=== PATIENT | male | born 1945 | race Caucasian/White ===

== ENCOUNTER → 2017-12-10 11:43 | Outpatient (CLI) | payer MEDICARE, SELFPAY ==
[2017-12-10 12:51] LABS: Anion Gap 7 (5-15); BUN 14 mg/dL (7-18); BUN/Creat Ratio 14.3 RATIO (10-20); Calcium,Total 8.5 mg/dL (8.5-10.1); Chloride 106 mmol/L (98-107); Creatinine, Serum 0.98 mg/dL (0.70-1.30); EST Glomerular Filtration Rate 80 mL/min (>60); Est Glom Filt Rate - Afr Amer 96 mL/min (>60); Glucose 95 mg/dL (74-106); PSA,Total- Diagnostic 0.02 ng/mL (0.0-4.0); Sodium Level 140 mmol/L (136-145)
== END ==
PROVIDERS: Visit Provider Urology
DX: C61 Malignant neoplasm of prostate (principal)
CPT/HCPCS: 36415; 80048; 84153

== ENCOUNTER 2017-12-26 09:17 | Day surgery (SDC) | payer MEDICARE, SELFPAY ==
[2017-12-26] VITALS (11 sets, daily range): BP systolic 118–157; BP diastolic 73–95; PULSE 58–87; RESP 16–18; TEMP 36.2–37; O2SAT 91–100; BMI 25.7
--- NOTE | 2017-12-26 09:28 | EKG12_ITS ---
Test Reason : PREOP Blood Pressure : / mmHG Vent. Rate : 060 BPM Atrial Rate : 060 BPM P-R Int : 204 ms QRS Dur : 088 ms QT Int : 442 ms P-R-T Axes : -16 033 033 degrees QTc Int : 442 ms Normal sinus rhythm Nonspecific ST segment abnormality Abnormal ECG Confirmed by DECLAN LOUIS, SOO ([id number]), index editor ISABEL MARTINEZ ([id number]) on 01/01/2018 3:44:15 PM Referred By: Cuba Rod Confirmed By:SOO MANRIQUEZ MD
[2017-12-26 09:40] LABS: Hematocrit 43.7 % (40-54); Hemoglobin 14.6 g/dl (13.0-16.5); Mean Corp Hgb Conc 33.4 g/gl (32-36); Mean Corpuscular Hgb 32.3 pg (27.0-32.0); Mean Corpuscular Volume 96.7 fL (80-94); Mean Platelet Vol. 9.8 fl (6.2-12.0); Platelet Count 259 K/mm3 (150-450); RBC Distribution Width CV 12.5 % (11.6-14.6); RBC Distribution Width SD 43.2 fl (35.1-43.9); Red Blood Count 4.52 M/mm3 (4.6-6.2); White Blood Count 4.7 K/mm3 (4.4-11.0)
[2017-12-26 09:41] LABS: Scan Indicated on CBC? Y/N NO
--- NOTE | 2017-12-26 11:30 | PROS_PTH ---
PATIENT: AMI LEVI [place] [facility] [place] [facility] [place][id number] AGE/SX: 72/M ROOM: RE12/26/[address]: Dr. Cuba Rod MD : [id number] BED: DIS: 12/27/2017 SPEC #: [id number] RECD: 12/26/17 14:00 STATUS: DOLORES RYAN #: [id number] JACQUES: 12/26/17 11:[address]: Cuba Rod DEPT: SURGICAL PATHOLOGY RECD BY: Praveena Arboleda ENTERED: 12/26/17 15:09 SP TYPE: TURP OTHR DR: Dr. Nataly Kaplan MD Tissues: Prostate, NOS Procedures: Surgery Specimen Level IV HEADER OPERATION: Cysto, TUR, prostate, Olympus PRE-OP DIAGNOSIS: History of prostate cancer, postradiation therapy, obstruction midline prostate with calcification plaques, urgency, frequency TISSUE SUBMITTED: Prostate chips MICROSCOPIC DIAGNOSIS Prostate chips, TUR: Benign prostatic hyperplasia. Acute and chronic inflammation and basal cell hyperplasia. Focal necrosis, associated acute inflammation and calcification, most likely therapy-related changes. EVELIN:min 12/27/17 COMMENT Correlation with clinical findings and appropriate follow up are necessary. Please make reference to previous specimen ([id number]) right prostate, mid, left prostate, apex, left prostate, mid and left prostate, base with diagnosis of prostatic adenocarcinoma and right prostate, base with diagnosis of focal high-grade prostatic intraepithelial neoplasia. MICROSCOPIC DESCRIPTION Slides are reviewed. GROSS DESCRIPTION Received is one container labeled with the patient's name and designated prostate chips. The specimen consists of multiple irregular fragments of pink-vang, rubbery, soft tissue that in aggregate weigh 14.4 gm and measure in aggregate 6 x 6 x 2.5 cm. Crusher Wet Ground Mica tissue is submitted in 12 cassettes. / EVELIN:min 12/26/17 The rest of the specimen is submitted in three more cassettes, 13-15. / EVELIN:min 12/27/17 TC:5 CPT: 36759
[2017-12-26] MEDS: Cefazolin 2 GM in 0.9% Normal Saline 100 ML IV (12:21)
--- NOTE | 2017-12-26 12:22 | DCINST_ITS ---
Discharge Diet: Light diet - advance as tolerated Discharge Activity: Return to Normal Activity Call your doctor if your incision/area has: Continuous Slow Oozing, Sudden Increased Bleeding, Increased Pain/ Swelling, Increased Redness, Foul Smelling Discharge, Swelling at the incision site Suture Line Care: Avoid Pulling/Pushing, Avoid Pinching/Bending Instructions: Transurethral Resection of the Prostate (TURP): Home Recovery Allergies/Adverse Reactions: Allergies Sulfa (Sulfonamide Antibiotics) Allergy (Verified 12/24/17 08:53) Rash Medications to take at Discharge Lisinopril [Zestril] 40 mg PO DAILY 06/17/14 Amlodipine [Norvasc] 5 mg PO DAILY 12/24/17 Pravastatin [Pravachol] 40 mg PO DAILY 12/24/17 Ciprofloxacin [Cipro] 500 mg PO BID #14 tab 12/26/17 The following prescriptions were given: Ciprofloxacin [Cipro] 500 mg PO BID #14 tab Primary Care Physician: Nataly Kaplan [Primary Care Provider] - Test Results: Test results from this visit will be discussed in further detail at your follow- up appointment, if applicable. Please Follow Up With: Cuba Rod MD When: in 2 weeks, please call to make an appointment.
--- NOTE | 2017-12-26 13:18 | PCM.OPRPT ---
Problem List (1) BPH (benign prostatic hyperplasia) Status: Chronic Qualifiers: Lower urinary tract symptom presence: symptoms present Lower urinary tract symptom detail: urinary frequency Qualified Code(s): N40.1 - Benign prostatic hyperplasia with lower urinary tract symptoms; R35.0 - Frequency of micturition Report of Operation Date of Procedure: 12/26/17 Pre-Operative Diagnosis: BPH with obstruction Post-Operative Diagnosis: The same Surgery/Procedure Performed:: Transurethral resection of the prostate Description of Surgical Findings:: 72-year-old male taken back to the operating room at the smooth induction of general anesthesia he was placed supine on the table in the dorsolithotomy position, the penis testicles were prepped and draped in usual sterile fashion, I then went into the bladder with a 24 [place] noncontinuous flow resectoscope using the 24 Olympus he had a significant amount of tissue coming from the right side of the prostate there is a calcification stuck on the prostate and skull causing a lot of irritation the bladder wall I then resected the right lobe of the prostate and then resected down back to the apex I then resected the left lobe the prostate no median lobe was there to be resected left and right ureteral orifice were identified and uninjured after the complete resection of the prostate had a nice wide open channel did coud? maneuver and was able to get a nice wide open stream check the sphincter the sphincter is nice and intact and at this point then I put it all all the chips were Ellik out of the bladder I obtain good hemostasis and pinpoint electrocautery and the put a catheter in for continuous bladder irrigation tissue anesthetic is currently being reversed plan to taken back to PACU with continuous bladder irrigation. Type of Anesthesia:: General Specimen's removed: prostate tissue - Admit VTE Documentation VTE Present on Admission: No VTE Mechan Device Prophylaxis: SCD's
[2017-12-26] MEDS: 0.9% Normal Saline 1,000 ML 75 ML IV ×2 (14:02→21:06)
[2017-12-26] MEDS: Ciprofloxacin 500 MG Tablet PO ×2 (18:06→21:08)
[2017-12-26] MEDS: Docusate Sodium 100 MG Capsule PO (21:08)
[2017-12-27 02:41] VITALS: BP 115/89; PULSE 72; RESP 16; TEMP 37.2; O2SAT 94
[2017-12-27 02:48] VITALS: PULSE 72
[2017-12-27] MEDS: Ibuprofen 600 MG Tablet PO (06:37)
--- NOTE | 2017-12-27 07:44 | PCM.PN.BLA ---
Progress Note 72-year-old male status post TURP doing very well, urine is clear, while the nursing staff take out the catheter and after he is able to urinate and go home without a catheter and follow-up with me in about 2 weeks. He will go home with Cipro.
[2017-12-27 08:40] VITALS: BP 113/67; PULSE 66; RESP 18; TEMP 37.1; O2SAT 93
[2017-12-27] MEDS: Docusate Sodium 100 MG Capsule PO (09:51)
[2017-12-27] MEDS: Pantoprazole Sodium 40 MG Tablet PO (09:51)
[2017-12-27] MEDS: Ciprofloxacin 500 MG Tablet PO (09:51)
== END 2017-12-27 12:50 | disposition home or self-care (01) ==
LOC: SDC 09:18 → AC 09:19 → MS3 12-27 08:54
PROVIDERS: Family Provider Family Medicine; PCP Family Medicine; Visit Provider Urology
PROC: (CPT 52601; principal; 2017-12-26 11:20)
DX: N40.1 Benign prostatic hyperplasia with lower urinary tract symptoms (principal); R35.0 Frequency of micturition; R39.15 Urgency of urination; Z85.828 Personal history of other malignant neoplasm of skin; Z85.46 Personal history of malignant neoplasm of prostate; E78.00 Pure hypercholesterolemia, unspecified; Z79.899 Other long term (current) drug therapy; I10 Essential (primary) hypertension
CPT/HCPCS: 52601; 36415; 85027; 88305; 93005; J7030; J7120; J2405

== ENCOUNTER → 2018-10-14 | Outpatient (CLI) | payer MEDICARE, SELFPAY ==
[2017-12-26 14:42] VITALS: BMI 25.7
[2018-10-14 10:44] LABS: PSA,Total- Diagnostic 0.08 ng/mL (0.0-4.0)
== END | disposition home or self-care (01) ==
LOC: LAB 09:01
PROVIDERS: Family Provider Internal Medicine; PCP Internal Medicine; Referring Provider Urology; Visit Provider Urology
DX: C61 Malignant neoplasm of prostate (principal)
CPT/HCPCS: 36415; 84153

== ENCOUNTER → 2019-10-13 08:00 | Outpatient (CLI) | payer MEDICARE, SELFPAY ==
[2017-12-26 14:42] VITALS: BMI 25.7
== END ==
PROVIDERS: PCP Internal Medicine; Referring Provider Urology; Visit Provider Urology
DX: C61 Malignant neoplasm of prostate (principal)
CPT/HCPCS: 36415; 84153

== ENCOUNTER 2019-11-14 07:10 | Emergency (ER) | payer MEDICARE, SELFPAY ==
[2019-11-14 07:14] VITALS: BP 154/78; PULSE 53; RESP 17; TEMP 36.4; O2SAT 96; BMI 25.9
--- NOTE | 2019-11-14 07:29 | CT_ITS ---
STUDY: CT ABDOMEN AND PELVIS WITH CONTRAST REASON FOR EXAM: Male, 74 years old. PT STATED RT LOWER FLANK PAIN, VOMITING, HEMATURIA RADIATION DOSAGE (If Supplied By Facility): CTDIvol = ( 17.29 ) mGy, DLP = ( 1049.16 ) mGycm TECHNIQUE: Transaxial images were obtained from the dome of the diaphragm to the symphysis pubis with oral contrast. Oral and amp; IV Gastrografin and amp; 100mL Isovue-300 was administered. Sagittal and coronal images were reconstructed. Individualized dose optimization techniques were used for this CT. COMPARISON: Comparison is made with prior examination dated December 29, 2016. FINDINGS: Stable minimal degree of increased markings at the lung bases with areas of confluence suggestive of bibasilar scarring. Calcified right hilar lymph nodes. Coronary artery calcification. Normal liver. Normal gallbladder and extrahepatic biliary system. Normal spleen. Normal pancreas. Normal bilateral adrenal glands. There is a 2.3 cm x 1.9 cm cyst in the posterior upper pole of the right kidney. Mild degree of the right hydronephrosis and the right hydroureter due to a 3 mm calculus in the distal portion of the right ureter. Normal left kidney. Normal visualized stomach. Normal small intestine. There are multiple colonic diverticula consistent with diverticulosis. The appendix is visualized and appears normal. There is diffuse atherosclerotic calcification of the abdominal aorta, without a demonstrated aneurysm. Normal inferior vena cava. Normal retroperitoneum. Normal urinary bladder. Central prostatic calcifications are seen. There is also evidence of the metallic radiation seeds within the prostate. There is eccentric enlargement of the prostate worse on the left side with the indentation at the bladder base worse on the left side. This is unchanged. There is a small umbilical hernia containing fat. There are mild degenerative changes of the visualized lumbar spine. Minimal retrolisthesis of L2 on L3. CT/Abdomen/Pelvis WITH Contrast IMPRESSION: 3 mm calculus in the distal portion of the right ureter causing right hydronephrosis and right hydroureter. Stable cyst in the right kidney. Stable enlargement of the prostate with indentation at the bladder base more prominent on the left side. Electronically Signed: Layton Carlin, at 8:41 EDT , Service support ,
--- NOTE | 2019-11-14 07:30 | ED.DCSUM_ITS ---
History of Present Illness Chief Complaint: Abd Pain Informant: Patient Onset: Yesterday Context: Gradual Onset Timing: Waxes and wanes Current Severity: Moderate Maximum Severity: Moderate Narrative: Patient presents secondary to abdominal pain and right flank pain. He states lower abdominal pain started yesterday afternoon. He describes it as crampy and tight. He denies fever or chills. No nausea or vomiting. He did eat dinner and states that seemed to help relieve the pain slightly. Overnight pain worsened again and started radiating into the right flank. He denies urinary symptoms. He denies passing gas or having a bowel movement since onset. He denies any prior abdominal surgeries. - Past Medical History (1) BPH (benign prostatic hyperplasia) Status: Chronic (2) Cerebrovascular disease Status: Chronic Comment: Small basal ganglia infarcts (3) Dyslipidemia Status: Chronic (4) HTN (hypertension) Status: Chronic (5) Nephrolithiasis Status: Chronic Past Medical History - Allergies and Home Meds Allergies/Adverse Reactions: Allergies Sulfa (Sulfonamide Antibiotics) Allergy (Verified 11/14/19 07:14) Rash Primary Care Physician: Care Physician,No Primary [NON-STAFF] - Prior records reviewed: Yes Lives: Spouse/ Significant Other Smoking Status: Never smoker - Family History Maternal Family History: Reports: No pertinent history Review of Systems General: Denies: Chills, Fever Eyes: Denies: Visual changes - bilaterally ENT: Denies: Bilateral ear pain Cardiovascular: Denies: Chest pain Respiratory: Denies: Dyspnea, Cough Gastrointestinal: Reports: Abdominal pain. Denies: Nausea, Vomiting, Diarrhea Genitourinary: Denies: Dysuria Musculoskeletal: Reports: Back pain - Right flank pain. Denies: Extremity Pain Neurological: Denies: Headache Endocrine: Denies: Polyuria, Polydipsia Allergy: Denies: Uticaria Physical Exam Vital Signs/Narrative: Vital Signs Temp Pulse Resp BP Pulse Ox 11/14/19 07:14 97.6 F L 53 L 17 154/78 H 96 Inital Vital Signs reviewed: Yes General: Well nourished, Well developed Head: Normocephalic ENT: Moist mucous membranes Neck: Supple Cardiovascular: Regular rate, Regular rhythm Respiratory: No distress, CTA bilaterally Abdomen: Soft, - - Abdomen slightly distended with hypoactive, minimal bowel sounds. Tenderness over the mid abdomen and right lower quadrant. Mild tenderness in the right lower flank region. Extremities: Nontender Skin: Normal color Neurological: Alert, Oriented x3 Psychological: Normal affect Diagnostic/Tx/Re-eval Impressions Abdomen/Pelvis CT 11/14/19 07:29 IMPRESSION: 3 mm calculus in the distal portion of the right ureter causing right hydronephrosis and right hydroureter. Stable cyst in the right kidney. Stable enlargement of the prostate with indentation at the bladder base more prominent on the left side. Electronically Signed: Layton Carlin, at 8:41 EDT , Service support , 11/14/19 07:29 Abdomen/Pelvis WITH Contrast [CT] Stat Laboratory Results 11/14/19 11/14/19 11/14/19 07:31 07:40 07:40 WBC 6.5 RBC 4.72 Hgb 14.9 Hct 46.1 MCV 97.7 H MCH 31.6 MCHC 32.3 RDW Std Deviation 45.5 H RDW Coeff of Milagro 12.7 Plt Count 263 MPV 9.5 Immature Gran % (Auto) 0.500 Neut % (Auto) 59.2 Lymph % (Auto) 21.7 Hardin % (Auto) 15.5 H Eos % (Auto) 2.2 Baso % (Auto) 0.9 Absolute Neuts (auto) 3.9 Absolute Lymphs (auto) 1.41 Nucleated RBC % 0 Sodium 141 Potassium 4.4 Chloride 106 Carbon Dioxide 27.0 Anion Gap 8 BUN 16 Creatinine 1.08 Estim Creat Clear Calc 62.94 Est GFR (MDRD) Af Amer 86 Est GFR (MDRD) Non-Af 71 BUN/Creatinine Ratio 14.8 Glucose 156 H Calcium 9.2 Total Bilirubin 0.80 Direct Bilirubin 0.20 AST 39 H ALT 70 H Alkaline Phosphatase 106 Total Protein 7.3 Albumin 3.8 Globulin 3.5 Urine Color Yellow Urine Clarity Sl. Cloudy Urine pH 5.0 Ur Specific Dickerson 1.025 Urine Protein 100 H Urine Glucose (UA) Normal Urine Ketones 5 H Urine Occult Blood 250 H Urine Nitrite Negative Urine Bilirubin Negative Urine Urobilinogen Normal Ur Leukocyte Esterase 25 H Urine RBC 25-50 SEEN Urine WBC 0-5 SEEN Ur Squamous Epith Cells 0 SEEN Urine Bacteria 1+ Urine Mucus 0 SEEN Urine Yeast 1+ - Medical Decision Making Patient was given morphine and Zofran for pain along with IV fluids. On repeat evaluation he is resting comfortably. Test results tests discussed with patient and family at bedside. Kidney stone is currently measuring 3 mm and he should be able to pass this on his own. He will be given pain medication for home. He has seen Dr. Rod in the past and will be referred to him for follow-up. He was given return instructions if symptoms worsen or he has any concerns. ED Disposition - Plan for ED Patient: Disposition: Home or Assisted Living Diagnosis: Kidney stone Instructions: ED Renal Stone w Colic Prescriptions: Tamsulosin HCl [Flomax] 0.4 mg PO DAILY #7 cap Transmission Status: Pending to [id number] Ibuprofen 400 mg PO 4X/DAY PRN PRN #14 tab PRN Reason: Pain Score 4-10/10 Transmission Status: Pending to [id number] Hydrocodone Bitart/Apap 5-325 [[place] 5MG-325MG] 1 tablet PO Q6H PRN PRN 3 Days #10 tablet PRN Reason: Pain Transmission Status: Received by [id number] Ondansetron [Zofran Odt] 4 mg PO Q8H PRN PRN #10 tab PRN Reason: Nausea Transmission Status: Pending to [id number] Referrals: Cuba Rod MD [STAFF PHYSICIAN] - 3-5 Days if not improving
[2019-11-14 07:40] LABS: Mucous, Urine 0 SEEN /hpf (<or=2+); Squamous Epithelial Cells - UA 0 SEEN /hpf (0-5)
[2019-11-14] MEDS: Morphine 4 MG/ML Syringe IV (07:48)
[2019-11-14] MEDS: 0.9% Normal Saline 1,000 ML 150 ML IV (07:48)
[2019-11-14] MEDS: Ondansetron 4 MG/2 ML Vial IV (07:48)
[2019-11-14 07:49] LABS: Absolute Lymphocyte Count 1.41 X10^3/uL (0.83-4.51); Absolute Neutrophil Count 3.9 X10^3/uL (2.0-7.7); Basophil# 0.06 X10^3/uL; Basophil% 0.9 % (0-1); Eosinophil# 0.14 X10^3/uL; Eosinophils% 2.2 % (0-5); Hematocrit 46.1 % (40-54); Hemoglobin 14.9 g/dL (13.0-16.5); Lymphocyte # 1.41 X10^3/ul (4.0); Lymphocyte % 21.7 % (19-41); Mean Corp Hgb Conc 32.3 g/dL (32-36); Mean Corpuscular Hgb 31.6 pg (27.0-32.0); Mean Corpuscular Volume 97.7 fL (80-94); Mean Platelet Vol. 9.5 fl (6.2-12.0); Monocyte# 1.01 X10^3/uL; Monocyte% 15.5 % (0-10); NRBC Flagged by Analyzer 0 % (0-5); Neutrophil # 3.86 X10^3/uL (2.7-7.7); Neutrophil % 59.2 % (47-70); Platelet Count 263 K/mm3 (150-450); RBC Distribution Width CV 12.7 % (11.6-14.6); RBC Distribution Width SD 45.5 fl (35.1-43.9); Red Blood Count 4.72 M/mm3 (4.6-6.2); White Blood Count 6.5 K/mm3 (4.4-11.0)
[2019-11-14 07:50] LABS: Color, Urine Yellow (Yellow); Glucose, Dipstick Normal (Normal); Ketone-Dipstick 5 mg/dl (Negative); Leukocyte Esterase-Dipstick 25 /ul (Negative); Nitrite-Dipstick Negative (Negative); Occult Blood-Urine 250 /ul (Negative); Protein-Dipstick 100 mg/dl (Negative); Specific Gravity, Urine 1.025 (1.002-1.030); Urine Bilirubin Dipstick Negative (Negative); Urine Clarity Sl. Cloudy (Clear); Urine Urobilinogen Normal (Normal)
[2019-11-14 08:05] LABS: Bacteria 1+ /hpf (None Seen); Red Blood Cells-Urine 25-50 SEEN /hpf (0-5); White Blood Cells 0-5 SEEN /hpf (0-5); Yeast-Urine 1+ /hpf (None Seen)
[2019-11-14 08:06] LABS: AST(SGOT) 39 U/L (15-37); Alanine Aminotransfer ALT/SGPT 70 U/L (16-61); Albumin, Serum 3.8 g/dL (3.2-5.0); Alkaline Phosphatase 106 U/L (45-117); Anion Gap 8 (5-15); BUN 16 mg/dL (7-18); BUN/Creat Ratio 14.8 RATIO (10-20); Calcium,Total 9.2 mg/dL (8.5-10.1); Chloride 106 mmol/L (98-107); Creatinine, Serum 1.08 mg/dL (0.70-1.30); EST Glomerular Filtration Rate 71 mL/min (>60); Est Glom Filt Rate - Afr Amer 86 mL/min (>60); Estimated Creatinine Clearance 62.94 ml/min; Globulin 3.5 g/dL (2.2-4.2); Glucose 156 mg/dL (74-106); Potassium 4.4 mmol/L (3.5-5.1); Protein, Total 7.3 g/dL (6.4-8.2); Sodium Level 141 mmol/L (136-145)
[2019-11-14 08:54] VITALS: PULSE 55; RESP 15; O2SAT 95
== END 2019-11-14 08:59 | disposition home or self-care (01) ==
PROVIDERS: Emergency Provider Emergency Medicine; PCP Family Medicine
DX: N13.2 Hydronephrosis with renal and ureteral calculous obstruction (principal); N28.1 Cyst of kidney, acquired; I10 Essential (primary) hypertension; E78.5 Hyperlipidemia, unspecified; N40.0 Benign prostatic hyperplasia without lower urinary tract symptoms; Z86.73 Personal history of transient ischemic attack (TIA), and cerebral infarction without residual deficits; Z87.442 Personal history of urinary calculi; Z79.899 Other long term (current) drug therapy
CPT/HCPCS: 74177; 80048; 80076; 81001; 85025; 96361; 96374; 96375; 99285; J7030; Q9967; A4216; J2405

== ENCOUNTER → 2020-05-18 10:21 | Outpatient (CLI) | payer MEDICARE, SELFPAY ==
--- NOTE | 2020-05-18 10:24 | RAD_ITS ---
STUDY: X-RAY - ABDOMEN/PELVIS REASON FOR EXAM: Male, 75 years old. Right-sided posterior pain. Question kidney stone. TECHNIQUE: Two AP supine views of the abdomen and pelvis. COMPARISON: CT of the abdomen and pelvis, 11/14/2019. FINDINGS: Normal visualized lung bases. There is an unremarkable bowel gas pattern. There is no demonstrated free abdominal air. The visualized liver, spleen and kidneys are grossly normal in size and morphology. No suspicious calcifications. There are surgical clips in the lower pelvis. Stable degenerative changes of the lumbar spine RAD/Abdomen Single View IMPRESSION: No evidence of renal or ureteral calcifications. There is no evidence of acute abdominal or pelvic processes. Electronically Signed: Hu Bull DO at 17:30 EST Tel [phone], Service support ,
== END ==
PROVIDERS: PCP Family Medicine; Visit Provider Urology
DX: N23 Unspecified renal colic (principal); Z87.442 Personal history of urinary calculi
CPT/HCPCS: 74018

== ENCOUNTER → 2020-05-18 11:38 | Outpatient (CLI) | payer MEDICARE, SELFPAY ==
--- NOTE | 2020-05-18 11:40 | CT_ITS ---
STUDY: CT ABDOMEN AND PELVIS WITHOUT CONTRAST REASON FOR EXAM: Male, 75 years old. RIGHT FLANK PAIN -- HX-KIDNEY STONE, PROSTATE CA W/ TURP and amp;amp; RADIATION RADIATION DOSAGE (If Supplied By Facility): CTDIvol = ( 13.75 ) mGy, DLP = ( 673.24 ) mGycm TECHNIQUE: Transaxial images were obtained from the dome of the diaphragm to the symphysis pubis without oral contrast, and without intravenous contrast. Sagittal and coronal images were reconstructed. Individualized dose optimization techniques were used for this CT. COMPARISON: Comparison is made with prior study dated 11/14/2019. FINDINGS: Stable minimal increased markings at the lung bases suggestive of scarring. Calcified right hilar lymph nodes. Coronary artery calcification. Normal liver. Normal gallbladder and extrahepatic biliary system. Normal spleen. Normal pancreas. Normal bilateral adrenal glands. Right perinephric stranding. Moderate degree of right hydronephrosis and the right hydroureter due to 2 adjacent calculi in the distal portion of the right ureter just proximal to the ureterovesical junction. The larger calculus measures 4.4 mm. Stable 2 cm cyst in the posterior upper aspect of the right kidney. Normal left kidney. Normal visualized stomach. Normal small intestine. There are multiple colonic diverticula consistent with diverticulosis. The appendix is visualized and appears normal. There is scattered atherosclerotic calcification of the abdominal aorta and its major visceral branches, without a demonstrated aneurysm. Normal inferior vena cava. Normal retroperitoneum. The bladder is almost empty with evidence of a thickened wall. There are prostatic calcifications. Evidence of prior TURP. Metallic radiation seeds are seen within the prostate. There is a small umbilical hernia containing fat. There are mild degenerative changes of the visualized lumbar spine. CT/Abdomen/Pelvis without Cont IMPRESSION: There are 2 adjacent calculi in the distal portion of the left ureter causing a mild degree of right hydronephrosis and right hydroureter with perinephric and periureteric stranding. The remainder of the examination is unchanged. Electronically Signed: Layton Carlin, at 12:17 EST , Service support ,
== END ==
PROVIDERS: PCP Family Medicine; Referring Provider Urology; Visit Provider Urology
DX: N23 Unspecified renal colic (principal); Z87.442 Personal history of urinary calculi
CPT/HCPCS: 74018; 74176

== ENCOUNTER 2020-05-26 05:52 | Day surgery (SDC) | payer MEDICARE, SELFPAY ==
[2020-05-26 06:37] VITALS: BP 125/85; PULSE 65; RESP 16; TEMP 36.6; O2SAT 97; BMI 26.2
[2020-05-26] MEDS: Lactated Ringers 1,000 ML 100 ML IV (07:01)
[2020-05-26 07:06] LABS: Bedside Glucose 124 mg/dL (70-110)
[2020-05-26] MEDS: Cefazolin 2 GM in 0.9% Normal Saline 100 ML IV (07:17)
--- NOTE | 2020-05-26 08:07 | PCM.HP.STD ---
History of Present Illness Date of Admission: 05/26/20 Chief Complaint: Distal right ureteral calculi The patient is a 75 year old male with a CAT scan to demonstrate obstructing stone in the distal right ureter is failed to pass it conservatively so again taken to surgery today and perform ureteroscopy and laser lithotripsy and stent placement on the right side. Past Medical History Past Medical History (Chronic Problems): Chronic Problems Cerebrovascular disease (Chronic) Small basal ganglia infarcts Nephrolithiasis (Chronic) BPH (benign prostatic hyperplasia) (Chronic) Dyslipidemia (Chronic) HTN (hypertension) (Chronic) Allergies Sulfa (Sulfonamide Antibiotics) Allergy (Verified 05/20/20 12:59) Rash Home Medications: Ambulatory Orders Medication Instructions Recorded Lisinopril [Zestril] 40 mg PO DAILY 06/17/14 Amlodipine [Norvasc] 5 mg PO DAILY 12/24/17 Pravastatin [Pravachol] 40 mg PO DAILY 12/24/17 Ibuprofen 400 mg PO 4X/DAY PRN PRN #14 tab 11/14/19 Metformin HCl 500 mg PO DAILY 11/14/19 Oxybutynin [Ditropan] 10 mg PO DAILY 11/14/19 Tamsulosin HCl [Flomax] 0.4 mg PO DAILY #7 cap 11/14/19 Super Beta Prostate 1 cap PO BID 05/20/20 Surgical History: no surgical history Smoking Status: Never smoker Tobacco Use: Non-smoker - *Family History Maternal History Items: No pertinent history Review of Systems Constitutional: Denies: Chills, Fever, Weight Change HEENT: Denies: Head Aches, Sinus Congestion, Sinus Drainage Cardiovascular: Denies: Chest Pain, Palpitations Respiratory: Denies: Cough, Shortness of breath at rest, Sputum production Gastrointestinal: Denies: Abdominal Pain, Nausea, Vomiting Genitourinary: Denies: Dysuria Musculoskeletal: Denies: Joint Pain, Joint Tenderness Skin: Denies: Rash, Wounds Neurological: Denies: Numbness, Tingling, Focal weakness Psychiatric: Denies: Anxiety, Depression, Homicidal Ideations, Suicidal Ideations Hematologic/ Lymphatic: Denies: Easy Bruising, Easy Bleeding VTE Information - Inpt Only VTE Present on Admission: No - Physical Exam Vitals/I&O's: Vital Signs Temp Pulse Resp BP Pulse Ox 97.8 F 65 16 125/85 H 97 05/26/20 06:37 05/26/20 06:37 05/26/20 06:37 05/26/20 06:37 05/26/20 06:37 Oxygen Delivery Method Room Air Weight: 85.3 kg Body Mass Index (BMI) 26.2 Finger Stick Blood Glucose 112 General: Alert, Oriented x3, Cooperative HEENT: Atraumatic, PERRLA, EOMI, Normocephalic Neck: Supple, No JVD, Negative Carotid Bruits Lungs: Clear to auscultation, Normal air movement Cardiovascular: Regular rate, No murmurs Abdomen: Bowel Sounds Present, Soft, Non Tender Extremities: No edema, Capillary Refill Less than 3 Seconds Skin: No rashes, No breakdown Musculoskeletal: No Tenderness to Palpation of Joints or Extremities Neurological: Cranial nerves II-XII grossly intact Psych/Mental Status: Normal Affect, Appropriate Microbiology Past 72 Hours 05/24/20 13:55 Interface Orders SARS-CoV-2 Antigen (Rapid) - Final Laboratory Results 05/26/20 06:43: POC Glucose 124 H Current Medications Lactated Ringer's () 1,000 mls @ 100 mls/hr IV .Q10H CINTHYA Last Admin: 05/26/20 07:01 Dose: 100 mls/hr Documented by: Assessment/Plan Plan to proceed with right ureteroscopy and laser lithotripsy of stone and stent placement.
[2020-05-26 08:11] VITALS: BP 125/85; BP 127/85; PULSE 80; RESP 16; TEMP 36; O2SAT 93
--- NOTE | 2020-05-26 08:14 | DCINST_ITS ---
Discharge Diet: Light diet - advance as tolerated Discharge Activity: Return to Normal Activity Suture Line Care: Avoid Pulling/Pushing, Avoid Pinching/Bending Additional Instructions: Remove stent in about 5 days or come to the office and have the nurse remove the stent. Allergies/Adverse Reactions: Allergies Sulfa (Sulfonamide Antibiotics) Allergy (Verified 05/20/20 12:59) Rash Medications to take at Discharge Lisinopril [Zestril] 40 mg PO DAILY 06/17/14 Amlodipine [Norvasc] 5 mg PO DAILY 12/24/17 Pravastatin [Pravachol] 40 mg PO DAILY 12/24/17 Ibuprofen 400 mg PO 4X/DAY PRN PRN #14 tab 11/14/19 Metformin HCl 500 mg PO DAILY 11/14/19 Oxybutynin [Ditropan] 10 mg PO DAILY 11/14/19 Tamsulosin HCl [Flomax] 0.4 mg PO DAILY #7 cap 11/14/19 Super Beta Prostate 1 cap PO BID 05/20/20 Ciprofloxacin [Cipro] 500 mg PO BID #6 tab 05/26/20 Ciprofloxacin [Cipro] 500 mg PO BID #6 tab 05/26/20 Hydrocodone/Acetaminophen [[place] 5-325 Tablet] 1 ea PO Q4H PRN PRN #14 tab 05/26/20 The following prescriptions were given: Ciprofloxacin [Cipro] 500 mg PO BID #6 tab Transmission Status: Pending to [facility] Ciprofloxacin [Cipro] 500 mg PO BID #6 tab Prescription Printed Hydrocodone/Acetaminophen [[place] 5-325 Tablet] 1 ea PO Q4H PRN PRN #14 tab PRN Reason: Pain 1-10 Or Fever Prescription Printed Primary Care Physician: Mavis Dockery MD [Primary Care Provider] - Test Results: Test results from this visit will be discussed in further detail at your follow- up appointment, if applicable. Please Follow Up With: Cuba Rod MD When: in 2 weeks, please call to make an appointment.
--- NOTE | 2020-05-26 08:17 | PCM.OPRPT ---
Report of Operation Date of Procedure: 05/26/20 Pre-Operative Diagnosis: Right ureteral calculi Post-Operative Diagnosis: Same Surgery/Procedure Performed:: Cystoscopy and removal of stones in the bladder, right ureteroscopy, balloon dilation of the right ureter, retrograde pyelogram interpretation fluoroscopic images, laser lithotripsy of stone, and right stent placement. Description of Surgical Findings:: This is a patient who presents to the hospital for treatment for an obstructing distal right ureter calculi. I discussed witht the patient how the surgery would be performed and we reviewed the risks and benefits of the surgery. The risk and benefits include the risk of failure to remove the stone completely and that the patient may need multiple procedures. We discussed the risk of an infection, the risk of bleeding. We discussed the very rare risk of serious complicated injury to the ureter. The patient understands that if the stone is not able to be removed safely that we may abort the procedure and place a stent. After full discussion and all questions address with the patient the consent form was signed the side was marked appropriately and the patient was taken back to the operating room for the procedure. The patient was taken back to the operating room. After induction of anesthesia by the anesthesiology team the patient was placed in dorsolithotomy position. The genitals were prepped and draped in usual sterile fashion. I went into the bladder with a 21 Kiswahili rigid cystourethroscope through the urethra. In the bladder stones were removed, multiple small stones. Upon entering the bladder I inspected the trigone the left and right ureteral orifice and the bladder itself. I then cannulated the right ureteral orifice and advanced a 0.038 Glidewire up into the kidney. Then over the Glidewire I advanced a 5 Fr Ureteral catheter and performed a retrograde pyelogram with about 10cc of contrast, to delineate the anatomy and identify the stone location. Then a ureteral balloon dilator was advanced over the wire and the distal ureter was balloon dilated with a 15 Fr x 5cm balloon dilator. After 3 minutes of dilating the ureter the balloon was backloaded off the 0.038 glidewire then the safety wire was left in place. I then placed a second 0.038 Guidewire as a working wire and over the working 0.038 guidewire I went in with the stephany rigide 7.5fr ureteroscope. I was able to go inside with the 7.5Fr stephany rigid utereroscope and I pulled out the working guidewire and then through the 7.5 fr simirigid ureteroscope I engage the stone in the distal ureter with laser lithotripsy using a 270miron laser fiber with energy setting of 6 Hertz and 0.6 J until the stone was lasered into tiny little pieces that should pass on their own. A retrograde pyelogram was performed with 10cc of contast and no extravasation of contrast or perforation was identified in the ureter there was some mild irritation of the ureter where the stone was located. I then backed out of the ureter left the wire in place and then over the 0.038 guidewire I placed a double coiled pigtail ureteral stent. The ureteral stent was advanced over the 0.038 guidewire under direct fluoroscopic guidance and direct cystoscopic visual guidance, once the stent was in good position I pulled the wire and the stent coiled in the kidney and bladder in good position. I then drained the patient's bladder and the cystoscope was removed and the patient was taken back to the recovery room in good position. The patient was given discharge instructions to call the office for instructions on when to come to the office to have the stent removed. Type of Anesthesia:: General Drains: stent right 6 x 26cm - Admit VTE Documentation VTE Present on Admission: No VTE Mechan Device Prophylaxis: SCD's
[2020-05-26 08:30] VITALS: BP 111/77; BP 125/85; PULSE 72; RESP 16; O2SAT 93
[2020-05-26 08:44] VITALS: BP 117/80; BP 125/85; PULSE 69; RESP 16; TEMP 36.6; O2SAT 94
[2020-05-26 09:38] VITALS: BP 118/89; BP 125/85; PULSE 67; RESP 18; TEMP 36.2; O2SAT 97
== END 2020-05-26 09:47 | disposition home or self-care (01) ==
LOC: SDC 05:53 → AC 05:54
PROVIDERS: PCP Family Medicine; Referring Provider Urology; Visit Provider Urology
PROC: 0TJ98ZZ Inspection of Ureter, Via Natural or Artificial Opening Endoscopic (ICD-10-PCS; CPT 52352; principal; 2020-05-26 07:20)
DX: N20.1 Calculus of ureter (principal); Z20.828 Contact with and (suspected) exposure to other viral communicable diseases; I10 Essential (primary) hypertension; N40.0 Benign prostatic hyperplasia without lower urinary tract symptoms; E78.5 Hyperlipidemia, unspecified; E78.00 Pure hypercholesterolemia, unspecified; Z85.828 Personal history of other malignant neoplasm of skin; Z86.73 Personal history of transient ischemic attack (TIA), and cerebral infarction without residual deficits; Z85.46 Personal history of malignant neoplasm of prostate; Z87.442 Personal history of urinary calculi; Z79.899 Other long term (current) drug therapy
CPT/HCPCS: 52356; 76000; 82962; 87426; C9803; J7120; C1726; C1769; J2405

== ENCOUNTER 2020-08-10 06:49 | Outpatient (RCR) | payer MEDICARE, SELFPAY ==
[2020-08-10] MEDS: COVID-19 VACC, MRNA(PFIZER)/PF 30 MCG/0.3 ML SYRINGE IM (08:03)
[2020-08-31] MEDS: COVID-19 VACC, MRNA(PFIZER)/PF 30 MCG/0.3 ML SYRINGE IM (07:59)
== END 2020-11-09 23:59 ==
LOC: IMMUN 06:49
PROVIDERS: PCP Family Medicine; Referring Provider Family Medicine; Visit Provider Family Medicine
DX: Z23 Encounter for immunization (principal)
CPT/HCPCS: 0001A; 0002A; 91300

== ENCOUNTER → 2020-09-20 09:28 | Outpatient (CLI) | payer MEDICARE, SELFPAY ==
[2020-09-20 09:59] LABS: Absolute Lymphocyte Count 1.12 X10^3/uL (0.83-4.51); Basophil# 0.07 X10^3/uL; Basophil% 1.4 % (0-1); Eosinophil# 0.23 X10^3/uL; Eosinophils% 4.5 % (0-5); Hematocrit 44.9 % (40-54); Hemoglobin 14.1 g/dL (13.0-16.5); Lymphocyte # 1.12 X10^3/ul (0.83-4.51); Lymphocyte % 21.7 % (19-41); Mean Corp Hgb Conc 31.4 g/dL (32-36); Mean Corpuscular Hgb 30.6 pg (27.0-32.0); Mean Corpuscular Volume 97.4 fL (80-94); Mean Platelet Vol. 10.2 fl (6.2-12.0); Monocyte# 0.74 X10^3/uL; Monocyte% 14.4 % (0-10); NRBC Flagged by Analyzer 0 % (0-5); Neutrophil # 2.96 X10^3/uL (2.7-7.7); Neutrophil % 57.4 % (47-70); Platelet Count 239 K/mm3 (150-450); RBC Distribution Width CV 12.8 % (11.6-14.6); RBC Distribution Width SD 45.7 fl (35.1-43.9); Red Blood Count 4.61 M/mm3 (4.6-6.2); White Blood Count 5.2 K/mm3 (4.4-11.0)
[2020-09-20 10:19] LABS: Microalbumin:Creatinine Ratio 145.3 mg/g CRE (<30 mg/g CRE)
[2020-09-20 10:33] LABS: ALB/GLOB Ratio 1.1 RATIO (0.9-2.4); AST(SGOT) 56 U/L (15-37); Alanine Aminotransfer ALT/SGPT 129 U/L (16-61); Albumin, Serum 3.5 g/dL (3.2-5.0); Alkaline Phosphatase 104 U/L (45-117); Anion Gap 4 (5-15); BUN 14 mg/dL (7-18); BUN/Creat Ratio 13.6 RATIO (10-20); Calcium,Total 8.8 mg/dL (8.5-10.1); Chloride 105 mmol/L (98-107); Cholesterol 188 mg/dL (200); Creatinine, Serum 1.03 mg/dL (0.70-1.30); EST Glomerular Filtration Rate 75 mL/min (>60); Est Glom Filt Rate - Afr Amer 90 mL/min (>60); Globulin 3.2 g/dL (2.2-4.2); Glucose 260 mg/dL (74-106); High Density Lipoprotein 44 mg/dL; Potassium 4.3 mmol/L (3.5-5.1); Protein, Total 6.7 g/dL (6.4-8.2); Sodium Level 139 mmol/L (136-145); Triglycerides 166 mg/dL; Very Low Density Lipoprotein 33 mg/dL (5-40)
== END ==
PROVIDERS: PCP Family Medicine; Visit Provider Family Medicine
DX: Z00.00 Encounter for general adult medical examination without abnormal findings (principal); E11.9 Type 2 diabetes mellitus without complications; I10 Essential (primary) hypertension; E78.00 Pure hypercholesterolemia, unspecified
CPT/HCPCS: 36415; 80053; 80061; 82043; 82570; 85025

== ENCOUNTER → 2020-10-04 08:31 | Outpatient (CLI) | payer MEDICARE, SELFPAY ==
[2020-10-04 08:04] VITALS: BMI 26.2
--- NOTE | 2020-10-04 08:35 | US_ITS ---
STUDY: ABDOMINAL ULTRASOUND - RIGHT UPPER QUADRANT REASON FOR VISIT: Male, 75 years old ELEVATED LIVER ENZYMES TECHNIQUE: Ultrasound evaluation of the right upper quadrant was performed with real-time and static faith-scale imaging. TECHNICAL QUALITY: Adequate. COMPARISON: None. FINDINGS: Liver: The liver measures 17.7 cm. There is increased echogenicity consistent with fatty infiltration. The bile ducts are within normal limits. There is hepatic color flow. The direction of portal flow is hepatopetal. There is no demonstrated mass lesion. Gallbladder: There is a contracted gallbladder. The gallbladder wall measures 5 mm. There is a negative sonographic Phipps''s sign. There is no pericholecystic fluid. There are no gallstones. Common Bile Duct (C.B.D.): The common bile duct measures 3 mm. Pancreas: There is nonvisualization of the pancreas due to overlying bowel gas. Right Kidney: Normal size of the right kidney. The right kidney measures 11 cm x 5.5 cm x 6.5 cm. Normal renal cortex. The right cortex measures 2 cm. There is no demonstrated renal mass or cyst. There is no right hydronephrosis. US/Abdomen Limited IMPRESSION: Fatty infiltration of the liver. Contracted gallbladder. Electronically Signed: Layton Carlin MD at 11:06 EDT , Service support ,
== END ==
PROVIDERS: PCP Family Medicine; Referring Provider Family Medicine; Visit Provider Family Medicine
DX: R74.8 Abnormal levels of other serum enzymes (principal)
CPT/HCPCS: 76705

== ENCOUNTER 2020-10-26 06:42 | Day surgery (SDC) | payer MEDICARE, SELFPAY ==
[2020-10-04 08:04] VITALS: BMI 26.2
[2020-10-26] VITALS (7 sets, daily range): BP systolic 123–142; BP diastolic 79–90; PULSE 55–64; RESP 14–18; TEMP 36.1–36.2; O2SAT 94–97; BMI 26.0
[2020-10-26] MEDS: Lactated Ringers 1,000 ML 100 ML IV (07:34)
--- NOTE | 2020-10-26 07:50 | HP.PCM_ITS ---
History and Physical Date of Admission: 10/26/20 Intake Vital Signs ? 10/05/2107:02 10/05/2107:04 Height 5 ft 9 in ? Weight: 192 lb ? BMI 28.3 26.2 BP 136/76 H ? Blood Pressure Location Rt brachial ? Position Sitting ? Respiration 18 ? Pulse 60 ? Pulse Source NIBP ? Temp 97.8 F ? Temp Source Temporal ? Pulse Oximetry (%) 96 ? Oxygen Delivery Method room air ? 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 Is patient in pain?: No Allergies Sulfa (Sulfonamide Antibiotics) Allergy (Verified 10/04/20 08:03) Rash Medications lisinopril 40 mg PO DAILY 06/17/14 [History Confirmed 10/04/20] amlodipine 5 mg PO DAILY 12/24/17 [History Confirmed 10/04/20] pravastatin 40 mg PO DAILY 12/24/17 [History Confirmed 10/04/20] ibuprofen 400 mg PO 4X/DAY PRN PRN #14 tab 11/14/19 [Rx Confirmed 10/04/20] metformin 500 mg PO DAILY 11/14/19 [History Confirmed 10/04/20] oxybutynin chloride 10 mg PO DAILY 11/14/19 [History Confirmed 10/04/20] Super Beta Prostate 1 cap PO BID 05/20/20 [History Confirmed 10/04/20] PFSH Medical History?(Updated 10/04/20 @ 08:[address] Douglas Rodriguez MD) Diabetes mellitus History of prostate cancer Family History? Brother Colon cancer Heart diseaseFather Heart disease Myocardial infarction Social History? Smoking Status:? Never smoker HPI HPI HPI: AMI LEVI, is a 75 M who presents to the office today for HPI HPI HPI: AMI LEVI, is a 75 M who presents to the office today for screening colonoscopy.? The patient reports he is not having blood in his stool or abdominal pain.? He has last colonoscopy over 10 years ago.? He was told several screening colonoscopy 2 years ago but never showed up for his appointment.? The patient does have a family history of colon cancer in his brother. ROS General General: No weight change, appetite, fatigue, colon cancer, breast cancer or weakness HEENT HEENT: No difficulty swallowing, eye injury, eye surgery, swollen glands or hoarseness Endo Endocrine: Yes diabetes mellitus; No thyroid disease, thyroid cancer, Hair loss, heat intolerance or cold intoler ance Cardio Cardiovascular: Yes high blood pressure; No pacemaker, heart disease, atrial fibrillation, heart attack, heart stent, palpitations, shortness of breat with exertion or chest pain Psych Psychiatric: No depression, anxiety or hearing voices Resp Respiratory: No shortness of breath, No sleep apnea, No cough, No COPD, No asthma, No emphysema and No wheezing Gastro Gastrointestinal: No abdominal pain, No nausea or vomiting, No diarrhea, No constipation, No blood in stool, No acid reflux, No hemorrhoids, No ulcers, No gallbladder problem and No black,tarry stools Chi Hematologic: No blood thinners, No blood disorders, No bleeding, No anemia and No blood clots Neuro Neurologic: No weakness Exam Const General: cooperative Orientation: alert and oriented x3 Resp Effort & Inspection: normal respiratory effort Auscultation: clear to auscultation bilaterally Cardio Rate: regular rate Rhythm: regular rhythm GI Inspection: non-distended Palpation: soft and nontender Assessment and Plan Assessment and Plan (1) Screen for colon cancer: ?Status:?Acute ?Plan - Dr. Douglas Rodriguez MD: The patient is overdue for screening colonoscopy.? He is over the age of 74 but I believe that he is due as he did not have his screening colonoscopy near age 74.? Patient does not have any blood in his stool or abdominal pain. I explained endoscopy in detail to the patient.? I explained the risks including but not limited to stroke or heart attack with anesthesia, perforation of the GI tract, bleeding, infection.? I explained that any of these could necessitate further emergency surgery.? The patient understands and all questions were answered sufficiently.? The patient wishes to proceed with procedure. Douglas Rodriguez MD Pager: [facility] [address] [place] [address], [address] [place] [address] Office: I have re-examined the patient. There are no clinical changes since date of exam.
--- NOTE | 2020-10-26 08:24 | OP.CCLET_ITS ---
10/26/2020 Mavis Dockery [place] [id number] [address] Re : Colonoscopy procedure for Deric Stein Dear Dr. Dockery This procedure was performed on Monday, October 26, 2020. My impressions and recommendations are as follows: Impressions : - The entire examined colon is normal on direct and retroflexion views. - No specimens collected. Recommendations : - Discharge patient to home. - Resume previous diet. - Continue present medications. - Repeat colonoscopy is not recommended due to current age (66 years or older) for screening purposes. My findings are described in the full procedure note, which is enclosed. If I can be of further assistance, please feel free to contact me at Doctor phone number(s): , Work: . Sincerely, Douglas Rodriguez MD 10/26/2020 8:23:40 AM This report has been signed electronically.
--- NOTE | 2020-10-26 08:24 | OP.COLON_ITS ---
Patient Name: Deric Stein Procedure Date: 10/26/2020 7:54 AM Date of : 1945 Age: 75 Procedure: Colonoscopy Indications: Screening for colorectal malignant neoplasm Providers: Douglas Rodriguez MD Medicines: Monitored Anesthesia Care Patient Profile: This is a 75 year old male. Refer to note in patient chart for documentation of history and physical. Last Colonoscopy: more than 10 years ago. Complications: No immediate complications. Procedure: Pre-Anesthesia Assessment: - Prior to the procedure, a History and Physical was performed, and patient medications and allergies were reviewed. The patient's tolerance of previous anesthesia was also reviewed. The risks and benefits of the procedure and the sedation options and risks were discussed with the patient. All questions were answered, and informed consent was obtained. Prior Anticoagulants: The patient has taken no previous anticoagulant or antiplatelet agents. After reviewing the risks and benefits, the patient was deemed in satisfactory condition to undergo the procedure. After I obtained informed consent, the scope was passed under direct vision. Throughout the procedure, the patient's blood pressure, pulse, and oxygen saturations were monitored continuously. The pediatric colonoscope was introduced through the anus and advanced to the cecum, identified by appendiceal orifice and ileocecal valve. The colonoscopy was performed without difficulty. The patient tolerated the procedure well. The quality of the bowel preparation was good. Scope In: 8:01:41 AM Scope Withdrawal Time 0 hours 6 minutes 10 seconds Scope Out: 8:18:57 AM Total Procedure Duration Time 0 hours 17 minutes 16 seconds Findings: The entire examined colon appeared normal on direct and retroflexion views. Impression: - The entire examined colon is normal on direct and retroflexion views. - No specimens collected. Recommendation: - Discharge patient to home. - Resume previous diet. - Continue present medications. - Repeat colonoscopy is not recommended due to current age (66 years or older) for screening purposes. Procedure Code(s): --- Professional --- G0121, Colorectal cancer screening; colonoscopy on individual not meeting criteria for high risk Diagnosis Code(s): --- Professional --- Z12.11, Encounter for screening for malignant neoplasm of colon CPT copyright 2017 [employer]. All rights reserved. The codes documented in this report are preliminary and upon nailer hand review may be revised to meet current compliance requirements. Douglas Rodriguez MD 10/26/2020 8:23:40 AM This report has been signed electronically. Number of Addenda: 0 Note Initiated On: 10/26/2020 7:54 AM
[2020-10-26 08:46] LABS: Bedside Glucose 122 mg/dL (70-110)
== END 2020-10-26 09:26 ==
LOC: EN 06:43 → AC 06:43
PROVIDERS: PCP Family Medicine; Referring Provider Family Medicine; Visit Provider Surgery
PROC: 0DJD8ZZ Inspection of Lower Intestinal Tract, Via Natural or Artificial Opening Endoscopic (ICD-10-PCS; CPT 45378; principal; 2020-10-26 07:55)
DX: Z12.11 Encounter for screening for malignant neoplasm of colon (principal); Z80.0 Family history of malignant neoplasm of digestive organs; E11.9 Type 2 diabetes mellitus without complications; I10 Essential (primary) hypertension; Z85.46 Personal history of malignant neoplasm of prostate; Z79.84 Long term (current) use of oral hypoglycemic drugs; Z79.899 Other long term (current) drug therapy
CPT/HCPCS: G0105; 82962; J7120; J2405

== ENCOUNTER 2021-07-11 08:09 | Outpatient (CLI) | payer MEDICARE, SELFPAY ==
[2021-07-11 09:16] LABS: PSA,Total- Diagnostic 0.52 ng/mL (0.0-4.0)
== END 2021-07-11 23:59 | disposition home or self-care (01) ==
LOC: LAB 08:12
PROVIDERS: PCP Family Medicine; Referring Provider Urology; Visit Provider Urology
DX: C61 Malignant neoplasm of prostate (principal)
CPT/HCPCS: 36415; 84153

== ENCOUNTER → 2022-07-17 | Outpatient (CLI) | payer MEDICARE, SELFPAY ==
[2022-07-17 13:12] LABS: PSA,Total- Diagnostic 1.58 ng/mL (0.0-4.0)
== END | disposition home or self-care (01) ==
LOC: LAB 11:21
PROVIDERS: PCP Family Medicine; Referring Provider Urology; Visit Provider Urology
DX: C61 Malignant neoplasm of prostate (principal)
CPT/HCPCS: 36415; 84153

== ENCOUNTER 2024-12-10 20:02 | Inpatient (IN) | payer MEDICARE, SELFPAY ==
[2024-12-10 20:02] VITALS: BP 118/81; PULSE 95; RESP 18; TEMP 36.7; O2SAT 92; BMI 23.9
--- NOTE | 2024-12-10 20:28 | EDS_ITS ---
HPI History of Present Illness Chief Complaint: Hyperglycemia Detail of Chief Complaint: Blood sugar greater than 600 Informant: patient and family Onset/Context/Timing Onset: Weeks Context: Gradual Onset Timing: Continuous Quality: Patient stopped his medications. He resumed his metformin 2-1/2 weeks ago Location: HPI narrative Current Severity: Moderate Maximum Severity: Moderate Worsened by: Noncompliance Relieved by: Nothing Associated Symptoms Associated Symptoms: Polyuria, polydipsia, nocturia, increased thirst and weight loss Narrative Narrative: Patient is an 79-year-old male. He has history of diabetes, type II, dyslipidemia, hypertension and CVA. He apparently stopped taking his metformin because it was causing him diarrhea. He stopped his metformin 2.5 to 3 months ago. He resumed his metformin 2 weeks ago but is only taking half the dose he was prescribed. He endorses polyuria, polydipsia, weight loss, nocturia and continuous thirst. Reportedly he was seen at [place] today. They reportedly gave him insulin and discharged him. Patient apparently is not been compliant with his blood pressure medicine or his cholesterol medicine either. He denies fever, chills night sweats. Denies headache, visual, ocular auditory symptoms. He denies cardiac or respiratory symptoms. He denies GI symptoms specifically nausea, vomiting or diarrhea. Daughter is concerned because at times he seems a little confused compared to normal and is not alert. Prior similar symptoms: Yes Recent Illness/Hospitalization: Yes [facility] Medical History Wears partial dentures Wears glasses Injury of head and neck Loss of consciousness Hypertension Hx of fracture of ankle Diabetes mellitus History of prostate cancer Home Medications ?Medication ?Instructions ?Recorded ?Last Taken ?Type lisinopril 40 mg tablet 40 mg PO DAILY BP 06/17/14 0 10/26/20 History amlodipine 5 mg tablet 5 mg PO DAILY BP 12/24/17 History pravastatin 80 mg tablet 40 mg PO DAILY CHOLESTEROL 0 12/24/17 Unknown History ibuprofen 400 mg tablet 400 mg PO 4X/DAY PRN PRN Galdino n 11/14/19 Unknown Rx Score -03/13 #14 tabs metformin 500 mg tablet 500 mg PO DAILY 11/14/19 Unk nown History oxybutynin chloride 5 mg tablet 10 mg PO DAILY 06/12/2 0 Unknown History Super Beta Prostate 1 cap PO BID 05/20/20 Unknow n History Allergy/AdvReac Type Severity Reaction Status Date / Time Sulfa (Sulfonamide Allergy Rash Verified 12/10/24 20:46 Antibiotics) Family History Brother Colon cancer Heart disease Father Heart disease Myocardial infarction Surgical History Hx of cystoscopy Hx of transurethral resection of prostate (~2013)
--- NOTE | 2024-12-10 20:28 | EX.ED.DYSGE1 ---
HPI History of Present Illness Chief Complaint: Hyperglycemia Detail of Chief Complaint: Blood sugar greater than 600 Informant: patient and family Onset/Context/Timing Onset: Weeks Context: Gradual Onset Timing: Continuous Quality: Patient stopped his medications. He resumed his metformin 2-1/2 weeks ago Location: HPI narrative Current Severity: Moderate Maximum Severity: Moderate Worsened by: Noncompliance Relieved by: Nothing Associated Symptoms Associated Symptoms: Polyuria, polydipsia, nocturia, increased thirst and weight loss Narrative Narrative: Patient is an 79-year-old male. He has history of diabetes, type II, dyslipidemia, hypertension and CVA. He apparently stopped taking his metformin because it was causing him diarrhea. He stopped his metformin 2.5 to 3 months ago. He resumed his metformin 2 weeks ago but is only taking half the dose he was prescribed. He endorses polyuria, polydipsia, weight loss, nocturia and continuous thirst. Reportedly he was seen at [facility] today. They reportedly gave him insulin and discharged him. Patient apparently is not been compliant with his blood pressure medicine or his cholesterol medicine either. He denies fever, chills night sweats. Denies headache, visual, ocular auditory symptoms. He denies cardiac or respiratory symptoms. He denies GI symptoms specifically nausea, vomiting or diarrhea. Daughter is concerned because at times he seems a little confused compared to normal and is not alert. Prior similar symptoms: Yes Recent Illness/Hospitalization: Yes [facility] Medical History Wears partial dentures Wears glasses Injury of head and neck Loss of consciousness Hypertension Hx of fracture of ankle Diabetes mellitus History of prostate cancer Home Medications ?Medication ?Instructions ?Recorded ?Last Taken ?Type lisinopril 40 mg tablet 40 mg PO DAILY BP 06/17/14 10/26/20 History amlodipine 5 mg tablet 5 mg PO DAILY BP 12/24/17 10/26/20 History pravastatin 80 mg tablet 40 mg PO DAILY CHOLESTEROL 12/24/17 Unknown History ibuprofen 400 mg tablet 400 mg PO 4X/DAY PRN PRN Pain 11/14/19 Unknown Rx Score 4-03/13 #14 tabs metformin 500 mg tablet 500 mg PO DAILY 11/14/19 Unknown History oxybutynin chloride 5 mg tablet 10 mg PO DAILY 11/14/19 Unknown History Super Beta Prostate 1 cap PO BID 05/20/20 Unknown History Allergy/AdvReac Type Severity Reaction Status Date / Time Sulfa (Sulfonamide Allergy Rash Verified 12/10/24 20:46 Antibiotics) Family History Brother Colon cancer Heart disease Father Heart disease Myocardial infarction Surgical History Hx of cystoscopy Hx of transurethral resection of prostate (~2013) Social History (Updated 12/10/24 @ 20:[address] Bhupinder Landon MD) household members: none Smoking Status: Never smoker ROS ROS ED Constitutional Constitutional ED: Reports weight loss; Denies chills, fever(s), subjective or sweats Eyes Eyes: Reports blurry vision bilateral; Denies change in vision or diplopia ENT ENT ED: Denies ear pain, rhinorrhea or sore throat Cardiovascular Cardiovascular: Denies chest pain, palpitations or racing heartbeat Respiratory/Chest Respiratory/Chest: Denies cough, dyspnea or dyspnea on exertion Gastrointestinal Gastrointestinal: Denies abdominal pain, constipation, diarrhea, melena, nausea or vomiting Genitourinary Genitourinary ED: Reports urinary frequency; Denies dysuria or hematuria Musculoskeletal Musculoskeletal: Denies arthralgias or myalgias Integumentary Denies rash Neurologic Neurologic: Reports weakness; Denies headache(s) or paresthesias Psychiatric Psychiatric: Denies anxiety or depression Endocrine Endocrinology: Reports polydipsia and polyuria; Denies cold intolerance or heat intolerance Hematologic/Lymphatic Hematologic/Lymphatic: Reports systems reviewed and no addt'l complaints, except as documented EXAM Physical Exam Const Vital Signs: 12/10/24 20:02 12/10/24 22:15 Temperature 98.1 F Temperature Source Oral Pulse Rate 95 66 Respiratory Rate 18 20 H Blood Pressure 118/81 H 125/76 H Blood Pressure Mean 93 92 Pulse Ox 92 94 Oxygen Delivery Method Room Air Room Air Positive well nourished and well developed Constitutional Narrative: Vital signs noted. General Appearance ED: well developed; Negative for pallor HEENT Reports dry mucous membranes HEENT Narrative: Head is atraumatic no cephalic. Ears normal. Nares patent. Posterior pharynx is normal. Mouth ED: Yes dry mucous membranes Mouth: dry mucous membranes Eyes PERRL and EOMs intact bilaterally General Eye ED: Negative for pale conjunctiva or scleral icterus Neck no lymphadenopathy, supple and no JVD Chest Wall inspection of chest normal and palpation of chest normal Resp normal respiratory effort and clear to auscultation bilaterally Resp Narrative: Patient does not have a ketotic odor to his breath. Cardio regular rate, regular rhythm, S1 normal heart sound, S2 normal heart sound and no murmurs GI normal to inspection, nondistended, normoactive bowel sounds, non-tender, non-distended and no masses; Negative for hepatosplenomegaly Palpation: soft Back/Spine no CVA tenderness Extremity normal to inspection Neuro oriented x3, CN's II-XII intact bilaterally and no sensory deficits noted Sensorium / Orientation: Negative for alert Motor Exam: strength 5/5 throughout Psych Psych Narrative: Depressed Skin no rashes or lesions noted, no wounds and No skin turgor normal General Skin Exam: Negative for jaundice or pallor MDM MDM MDM Narrative Medical decision making narrative: With blood sugar greater than 300 mild confusion need to entertain possibility of hyperosmolar nonketotic hyperglycemia with altered mental status. Will obtain BMP to assess glucose, CO2 anion gap and electrolytes as well as renal function. CBC to assess white count. The reason for his hyperglycemia is noncompliance. Will treat his hyperglycemia initially with IV fluids since he reportedly got insulin per daughter at outside facility. He states they did shit for me . Lab Data Attestation: I reviewed the patient's lab results. Lab results narrative: CBC is unremarkable. BMP reveals a pseudohyponatremia, CO2 of 19 with an anion gap of 17. BUN and creatinine are elevated at 28 and 1.34. Estimated GFR is 34. Blood sugar 634. That after he received insulin at outside facility. Urine does have ketones. Patient was started on insulin drip and beta hydroxybutyrate was added and the DKA order set was initiated. Labs: Laboratory Results - last 24 hr 12/10/24 12/10/24 12/10/24 20:45 20:53 21:30 WBC 7.7 RBC 4.66 Hgb 14.4 Hct 42.2 MCV 90.6 MCH 30.9 MCHC 34.1 RDW Std Deviation 39.8 RDW Coeff of Milagro 12.1 Plt Count 254 MPV 11.8 Immature Gran % (Auto) 0.500 Neut % (Auto) 70.2 H Lymph % (Auto) 17.3 L [place] % (Auto) 9.8 Eos % (Auto) 1.4 Baso % (Auto) 0.8 Absolute Neuts (auto) 5.4 Absolute Lymphs (auto) 1.32 Nucleated RBC % 0 Sodium 129 L Potassium 4.8 Chloride 92 L Carbon Dioxide 19.7 L Anion Gap 17 H BUN 28 H Creatinine 1.34 H Estim Creat Clear Calc 45.40 L Est GFR (MDRD) Non-Af 54 L BUN/Creatinine Ratio 21.1 H Glucose 634 H* Calcium 10.0 Urine Color Yellow Urine Clarity Clear Urine pH 6.0 Ur Specific [place] 1.010 Urine Protein 15 H Urine Glucose (UA) 1000 H Urine Ketones 15 H Urine Occult Blood 10 H Urine Nitrite Negative Urine Bilirubin Negative Urine Urobilinogen Normal Ur Leukocyte Esterase Negative POC Glucose > 500 H* EKG Initial EKG: Attestation: I personally reviewed and interpreted this EKG as follows: Interpretation: Sinus Bradycardia (Rate is 58. There is a first-degree AV block with a TX interval of 226 ms. QRS duration 90 ms per QT duration 428 ms. [place] is normal.) Management Discussion w/another healthcare provider: Hospitalist (Case discussed with Dr. Bird for admission to ICU for DKA, mild, elevated creatinine. Dr. Bird requested that I cancel the insulin drip and give him 25 units of insulin subcu and 1 L of lactated Ringer's wide open. He will admit him to PCU. He agrees he is probably mild DKA but feels he) Treatment and Re-Evaluation :: [place] was asked to page Dr. Bird for admission for DKA to the ICU Critical Care Time Critical Care Time: Yes Critical care time (excluding procedures): 30-74 minutes (32), Including time spent: (History, physical, documentation, discussion with family patient dementia potential laboratory results treatment for DKA), Discussing w/Patient &/or Family/Mobile Application Tester, Discussing w/Consultants and Arranging Admission or Transfer Discharge Plan Dx/Rx/DC Orders Clinical Impression: Diabetes mellitus type 2 with ketoacidosis, uncontrolled, HTN (hypertension), Dyslipidemia, BPH (benign prostatic hyperplasia), Elevated serum creatinine, Pseudohyponatremia Disposition Disposition: Acute Care [facility]
[2024-12-10] MEDS: 0.9% Normal Saline (1000mL) 1,000 ML 1000 ML IV (20:42)
[2024-12-10 20:49] LABS: Hematocrit 42.2 % (40-54); Hemoglobin 14.4 g/dL (13.0-16.5); Immature Granulocytes Count 0.040 X10^3/uL (0.0-0.0); Mean Corp Hgb Conc 34.1 g/dL (32-36); Mean Corpuscular Volume 90.6 fL (80-94); Mean Platelet Vol. 11.8 fl (6.2-12.0); NRBC Flagged by Analyzer 0 % (0-5); Platelet Count 254 K/mm3 (150-450); RBC Distribution Width CV 12.1 % (11.6-14.6); RBC Distribution Width SD 39.8 fl (35.1-43.9); Red Blood Count 4.66 M/mm3 (4.6-6.2); White Blood Count 7.7 K/mm3 (4.4-11.0)
[2024-12-10 21:40] LABS: Mucous, Urine 0 SEEN /hpf (<or=2+); Red Blood Cells-Urine 0 SEEN /hpf (0-5); Squamous Epithelial Cells - UA 0 SEEN /hpf (0-5)
[2024-12-10 22:01] LABS: Anion Gap 17 (5-15); BUN 28 mg/dL (4-19); BUN/Creat Ratio 21.1 RATIO (10-20); Calcium,Total 10.0 mg/dL (7.6-11.0); Carbon Dioxide 19.7 mmol/L (21.0-32.0); Chloride 92 mmol/L (98-108); Estimated Creatinine Clearance 45.40 ml/min (50-250); Glucose 634 mg/dL (70-99); Potassium 4.8 mmol/L (3.3-5.1)
[2024-12-10 22:04] LABS: Color, Urine Yellow (Yellow); Glucose, Dipstick 1000 mg/dl (Normal); Ketone-Dipstick 15 mg/dl (Negative); Leukocyte Esterase-Dipstick Negative /ul (Negative); Nitrite-Dipstick Negative (Negative); Occult Blood-Urine 10 /ul (Negative); Protein-Dipstick 15 mg/dl (Negative); Specific Gravity, Urine 1.010 (1.002-1.030); Urine Bilirubin Dipstick Negative (Negative)
[2024-12-10 22:15] VITALS: BP 125/76; PULSE 66; RESP 20; O2SAT 94
--- NOTE | 2024-12-10 22:34 | PCM.HP.STD ---
HPI - General General Date of Admission: 12/10/24 Date of Service: 12/10/24 Chief Complaint: Severe hyperglycemia HPI Narrative AMI LEVI, is a 79 M who presented to [facility] ED on 12/10/2024 with severe hyperglycemia. Patient has history of type 2 diabetes mellitus. He has only been on metformin for this. He stopped taking his metformin about 2 to 3 months ago due to diarrhea. Since then, he endorses polyuria, polydipsia and weight loss. He was seen at the [facility] ED earlier today. They reportedly gave him a dose of Humalog and some IV fluids and then discharged him home. However given his ongoing symptoms, daughter brought him to our ED for further evaluation. Notably daughter works in our [employer] department. In the ED vital signs were stable. Labs notable for sodium 129, chloride 92, bicarb 19, glucose 634, beta-hydroxybutyrate 2.8. Given concern for DKA, patient was started on IV fluids and insulin drip and hospitalist was contacted for admission. I saw the patient at bedside in the ED, daughter was present. Patient was mildly fatigued appearing but otherwise sitting back comfortably in bed and in no acute distress. Patient is alert and oriented x 3. He lives at home alone but notes that his daughter lives only a few minutes away. He denies any acute pain or discomfort currently. Does continue to feel thirsty and dry overall at this time. Daughter is up-to-date with his healthcare and showed me that his last A1c in my chart was 7.0% in August. She states that his A1c's have been around that range for the past few years. While patient has lab findings consistent with mild DKA, given history of type 2 diabetes was given a dose of Humalog 25 units and further IV fluids, and we will forego the insulin drip and admit the patient to PCU for further management. [facility] Medical History Wears partial dentures Wears glasses Injury of head and neck Loss of consciousness Hypertension Hx of fracture of ankle Diabetes mellitus History of prostate cancer Home Medications ?Medication ?Instructions ?Recorded ?Last Taken ?Type lisinopril 40 mg tablet 40 mg PO DAILY BP 06/17/14 12/10/24 History amlodipine 5 mg tablet 5 mg PO DAILY BP 12/24/17 10/26/20 History pravastatin 80 mg tablet 40 mg PO DAILY CHOLESTEROL 12/24/17 12/10/24 History ibuprofen 400 mg tablet 400 mg PO 4X/DAY PRN PRN Pain 11/14/19 Unknown Rx Score -03/13 #14 tabs metformin 500 mg tablet 500 mg PO DAILY diabetes 11/14/19 12/10/24 History oxybutynin chloride 5 mg tablet 10 mg PO DAILY bladder 11/14/19 Unknown History Super Beta Prostate 1 cap PO PRN urinary 05/20/20 Unknown History aspirin 81 mg capsule 81 mg PO DAILY cardiac 12/10/24 12/10/24 History Allergy/AdvReac Type Severity Reaction Status Date / Time Sulfa (Sulfonamide Allergy Rash Verified 12/10/24 20:46 Antibiotics) Family History Brother Colon cancer Heart disease Father Heart disease Myocardial infarction Surgical History Hx of cystoscopy Hx of transurethral resection of prostate (~2013) Social History household members: none Smoking Status: Never smoker ROS Constitutional Constitutional: Reports fatigue; Denies chills, fever(s) or weakness Eyes Eyes: Denies change in vision Cardiovascular Cardiovascular: Denies chest pain Respiratory/Chest Respiratory/Chest: Denies shortness of breath at rest Gastrointestinal Gastrointestinal: Denies abdominal pain Genitourinary Genitourinary: Denies dysuria Musculoskeletal Musculoskeletal: Denies arthralgias or myalgias Neurologic Neurologic: Denies dizziness, focal weakness or headache(s) Endocrine Endocrinology: Reports polydipsia and polyuria Vital Signs Vital Signs Vital Signs: 12/10/24 20:02 12/10/24 22:15 Temperature 98.1 F Temperature Source Oral Pulse Rate 95 66 Respiratory Rate 18 20 H Blood Pressure 118/81 H 125/76 H Blood Pressure Mean 93 92 Pulse Ox 92 94 Oxygen Delivery Method Room Air Room Air Weight Weight: 75.614 kg Body Mass Index (BMI) 23.9 Physical Exam Const alert, oriented x3, no apparent distress and average body habitus Constitutional Narrative: Elderly male, mildly fatigued appearing but otherwise laying back comfortably in bed, conversing normally, in no acute distress. General Appearance: cooperative and comfortable HEENT normocephalic, head/scalp atraumatic, hearing grossly normal bilaterally and nasal mucous membranes and turbinates normal HEENT Narrative: Dry mucous membranes. Eyes PERRL, EOMs intact bilaterally and conjunctivae normal Neck full ROM Chest inspection of chest normal Resp normal respiratory effort, normal air movement, no use of accessory muscles and clear to auscultation bilaterally Cardio regular rate, regular rhythm, no murmurs and peripheral pulses 2+ throughout GI normal to inspection, nondistended, normoactive bowel sounds, soft to palpation, non-tender and non-distended Back/Spine normal ROM Extremity normal to inspection, full ROM and no pedal edema Skin no rashes or lesions noted Psych mental status grossly normal Results Lab / Micro Data 12/10/24 20:45 12/11/24 00:40 Labs: Laboratory Results - last 24 hr 12/10/24 20:45: WBC 7.7, RBC 4.66, Hgb 14.4, Hct 42.2, MCV 90.6, MCH 30.9, MCHC 34.1, RDW Std Deviation 39.8, RDW Coeff of Milagro 12.1, Plt Count 254, MPV 11.8, Immature Gran % (Auto) 0.500, Neut % (Auto) 70.2 H, Lymph % (Auto) 17.3 L, [place] % (Auto) 9.8, Eos % (Auto) 1.4, Baso % (Auto) 0.8, Absolute Neuts (auto) 5.4, Absolute Lymphs (auto) 1.32, Nucleated RBC % 0, Sodium 129 L, Potassium 4.8, Chloride 92 L, Carbon Dioxide 19.7 L, Anion Gap 17 H, BUN 28 H, Creatinine 1.34 H, Estim Creat Clear Calc 45.40 L, Est GFR (MDRD) Non-Af 54 L, BUN/Creatinine Ratio 21.1 H, Glucose 634 H*, Calcium 10.0 12/10/24 20:53: POC Glucose > 500 H* 12/10/24 21:30: Urine Color Yellow, Urine Clarity Clear, Urine pH 6.0, Ur Specific [place] 1.010, Urine Protein 15 H, Urine Glucose (UA) 1000 H, Urine Ketones 15 H, Urine Occult Blood 10 H, Urine Nitrite Negative, Urine Bilirubin Negative, Urine Urobilinogen Normal, Ur Leukocyte Esterase Negative Assessment & Plan Assessment/Plan (1) Diabetes mellitus type 2 with ketoacidosis, uncontrolled: PLAN: Plan Patient is an 79-year-old male who presented to [facility] ED on 12/11/2024 with severe hyperglycemia. 1. Uncontrolled type 2 diabetes mellitus with severe hyperglycemia ? Admit under inpatient status to PCU. Blood glucose over 600 on admit. Labs with mild anion gap and mildly elevated beta-hydroxybutyrate concerning for DKA. However, likely mixed picture with starvation ketosis also contributing. Given 25 units of Humalog and IV fluids in the ED and opted not to treat with insulin drip. A1c 14.7%. Notably daughter is an [employer] nurse and very involved with the patient's care, and she noted that his A1c is typically run around 7%. Has only been on metformin for diabetes in the past. Unclear reason for severe worsening diabetes. Will treat with Lantus 15 units twice daily and Humalog 8 units plus sliding scale with meals for now, adjust as needed. Follow-up a.m. labs to ensure that anion gap closes. Okay for diabetic diet. 2. Mild creatinine elevation ? Creatinine 1.34 on admit, baseline appears to be around 1.1. Presumed prerenal in setting of severe hyperglycemia as above. Treated with IV fluids as above, follow-up a.m. BMP and monitor urine output. 3. Pseudohyponatremia ? Sodium 129 on admit. Corrected sodium 138 in setting of hyperglycemia. Follow-up a.m. sodium level. 4. Nonobstructive CAD, hypertension, hyperlipidemia ? Normotensive and volume depleted on admit, given IV fluids as above. Continue home aspirin and statin. Hold home amlodipine and lisinopril. 5. Overactive bladder ? Continue home oxybutynin. DVT prophylaxis: Lovenox CODE STATUS: Full code, verified Expected disposition: Home, TBD Total clinical time spent by myself addressing the patient's medical issues, reviewing all the data, and collaborating with patient's care team: 75 minutes. Charges/Coding Visit Charges Inpatient E&M: 29287 Init Hosp L3
[2024-12-10] MEDS: Lactated Ringers 1,000 ML 999 ML IV (22:54)
[2024-12-10 22:56] LABS: BETA-HYDROXYBUTYRATE 2.8 mmol/L (0.0-0.3)
[2024-12-10 23:40] VITALS: BP 138/79; PULSE 57; RESP 16; TEMP 36.7; O2SAT 96
[2024-12-10] MEDS: Famotidine 200 MG/20 ML MDV 20 MG in 0.9% Normal Saline (Pres. free 8 ML 300 MG IV (23:40)
[2024-12-11] VITALS (7 sets, daily range): BP systolic 102–119; BP diastolic 70–83; PULSE 53–71; RESP 12–16; TEMP 36.6–37; O2SAT 93–98; BMI 24.9
[2024-12-11] MEDS: Lactated Ringers 1,000 ML 125 ML IV (01:17)
[2024-12-11 01:20] LABS: Anion Gap 13 (5-15); BUN 24 mg/dL (4-19); BUN/Creat Ratio 21.7 RATIO (10-20); Calcium,Total 9.4 mg/dL (7.6-11.0); Carbon Dioxide 20.8 mmol/L (21.0-32.0); Chloride 101 mmol/L (98-108); Estimated Creatinine Clearance 54.05 ml/min (50-250); Glucose 356 mg/dL (70-99); Potassium 4.2 mmol/L (3.3-5.1)
[2024-12-11 07:16] LABS: Hematocrit 38.9 % (40-54); Hemoglobin 13.1 g/dL (13.0-16.5); Mean Corp Hgb Conc 33.7 g/dL (32-36); Mean Corpuscular Volume 92.0 fL (80-94); Mean Platelet Vol. 12.0 fl (6.2-12.0); Platelet Count 225 K/mm3 (150-450); RBC Distribution Width CV 12.1 % (11.6-14.6); RBC Distribution Width SD 40.6 fl (35.1-43.9); Red Blood Count 4.23 M/mm3 (4.6-6.2); White Blood Count 6.5 K/mm3 (4.4-11.0)
[2024-12-11 07:34] LABS: Anion Gap 11 (5-15); BUN 20 mg/dL (4-19); BUN/Creat Ratio 20.1 RATIO (10-20); Calcium,Total 9.0 mg/dL (7.6-11.0); Carbon Dioxide 23.1 mmol/L (21.0-32.0); Chloride 102 mmol/L (98-108); Estimated Creatinine Clearance 58.92 ml/min (50-250); Glucose 288 mg/dL (70-99); Potassium 4.3 mmol/L (3.3-5.1)
[2024-12-11] MEDS: Insulin Glargine-YFGN 100 UNIT/ML Pen 15 UNIT SC (08:26)
--- NOTE | 2024-12-11 14:52 | CASEMGMT ---
Addendum entered by Alistair Parra 12/12/24 15:44: Pt was educated about [facility] to assist with DM management. Pt declines service at this time. Addendum entered by Sonam Jacobs 12/11/24 16:15: RADHA Castro, states insulin administration education has been started. Original Note: RADHA REID Assessment Face to Face with patient for initial transition planning/care coordination assessment. RADHA REID introduced self and role at [facility], pt voices understanding. Pt is A&Ox4 and is resting comfortably in bed and is calm. Care providers, pharmacy, and demographics verified. Admitting dx: T2DM with Severe Hyperglycemia LACE Strata: 2 PCP:Estefany Swartz currently. Pt states that he is unhappy with the care his PCP provides and is wanting to switch. Pt was provided with a provider list. Pt states that he already knows who he wants due to a history with his old PCP, before his insurance changed. Pt states that he plans to call to get re-established. Specialists: Denies. Pt was educated about [facility] to help care for his DM. Pt states that he is not interested. Preferred Pharmacy: [email or web address] Insurance: [employer] Prescription Benefit: Yes LNOK: Yoana (Daughter), Rigo (Son) Living Arrangements: Pt lives alone in a 2 story home with 3 steps to enter ADLs/IADLs: Indep. 6-Click score is 24. Denies therapy needs Transportation: Self, daughter DME: Pt states that he has a functioning BGM with sufficient supplies including test strips, lancets, and EtOH swabs. Pt states that he was taking PO DM meds prior and plans to start taking insulin. Pt will need pen needles and education. HHC/SNF: denies hx of Pt?s goal: Home Plan: Home alone with DM supplies and education. Pt denies wanting any home care for education/ assistance. Pt denies OP Tx needs. Pt states that he feels safe returning home alone at the time of DC and denies further questions or concerns now. Report given to [employer] CM. Rik Parra RN, CM
--- NOTE | 2024-12-11 16:27 | PCM.PN.HOSP ---
Reason for Visit Reason for Visit: Diagnoses Type 2 diabetes mellitus with ketoacidosis without coma (12/10/24) Subjective Subjective Patient was seen and examined today, had a brief conversation about his diabetes, he was taken off metformin due to abdominal cramping and loose stools and I talked to his PCPs office and talked with the nurse practitioner that sees him directly, she states that his A1c is always been in the 7 range, the A1c of the patient when he was admitted this time was 14.7. Patient's repeat hemoglobin A1c this afternoon was 15.3 Objective Data Objective Data Vital Signs: Vital Signs Temp Pulse Resp BP Pulse Ox O2 Del Method 98.6 F 62 16 119/77 93 Room Air 12/11/24 14:00 12/11/24 14:00 12/11/24 14:00 12/11/24 14:00 12/11/24 14:00 12/11/24 14:00 Oxygen Delivery Method Room Air Weight: 76.5 kg Body Mass Index (BMI) 24.9 Intake & Output: Intake and Output for Last 24 Hours 12/09/24 12/10/24 12/11/24 23:59 23:59 23:59 Intake Total 1999 1010 / 1010 Output Total 200 / 200 Balance 1999 810 / 810 Lab / Micro Data 12/11/24 06:48 12/11/24 06:48 Labs: Laboratory Results - last 24 hr 12/10/24 20:45: WBC 7.7, RBC 4.66, Hgb 14.4, Hct 42.2, MCV 90.6, MCH 30.9, MCHC 34.1, RDW Std Deviation 39.8, RDW Coeff of Milagro 12.1, Plt Count 254, MPV 11.8, Immature Gran % (Auto) 0.500, Neut % (Auto) 70.2 H, Lymph % (Auto) 17.3 L, [place] % (Auto) 9.8, Eos % (Auto) 1.4, Baso % (Auto) 0.8, Absolute Neuts (auto) 5.4, Absolute Lymphs (auto) 1.32, Nucleated RBC % 0, Sodium 129 L, Potassium 4.8, Chloride 92 L, Carbon Dioxide 19.7 L, Anion Gap 17 H, BUN 28 H, Creatinine 1.34 H, Estim Creat Clear Calc 45.40 L, Est GFR (MDRD) Non-Af 54 L, BUN/Creatinine Ratio 21.1 H, Glucose 634 H*, Hemoglobin A1c 14.7 H, Calcium 10.0, b-Hydroxybutyric mmol/L 2.8 H 12/10/24 20:53: POC Glucose > 500 H* 12/10/24 21:30: Urine Color Yellow, Urine Clarity Clear, Urine pH 6.0, Ur Specific [place] 1.010, Urine Protein 15 H, Urine Glucose (UA) 1000 H, Urine Ketones 15 H, Urine Occult Blood 10 H, Urine Nitrite Negative, Urine Bilirubin Negative, Urine Urobilinogen Normal, Ur Leukocyte Esterase Negative, Urine RBC 0 SEEN, Urine WBC 0-5 SEEN, Ur Squamous Epith Cells 0 SEEN, Urine Bacteria 0 SEEN, Urine Mucus 0 SEEN 12/11/24 00:40: Sodium 135, Potassium 4.2, Chloride 101, Carbon Dioxide 20.8 L, Anion Gap 13, BUN 24 H, Creatinine 1.09, Estim Creat Clear Calc 54.05, Est GFR (MDRD) Non-Af 69, BUN/Creatinine Ratio 21.7 H, Glucose 356 H, Calcium 9.4 12/11/24 00:48: POC Glucose 320 H 12/11/24 06:31: POC Glucose 268 H 12/11/24 06:48: WBC 6.5, RBC 4.23 L, Hgb 13.1, Hct 38.9 L, MCV 92.0, MCH 31.0, MCHC 33.7, RDW Std Deviation 40.6, RDW Coeff of Milagro 12.1, Plt Count 225, MPV 12.0, Sodium 136, Potassium 4.3, Chloride 102, Carbon Dioxide 23.1, Anion Gap 11, BUN 20 H, Creatinine 1.00, Estim Creat Clear Calc 58.92, Est GFR (MDRD) Non-Af 77, BUN/Creatinine Ratio 20.1 H, Glucose 288 H, Hemoglobin A1c 15.3 H, Calcium 9.0 12/11/24 08:22: POC Glucose 220 H 12/11/24 11:36: POC Glucose 215 H Physical Exam Const alert, oriented x3 and no apparent distress General Appearance: cooperative, well kempt and well developed Orientation / Consciousness: awake, oriented to person, oriented to place and oriented to time HEENT normocephalic, head/scalp atraumatic and moist oral mucous membranes Eyes PERRL, EOMs intact bilaterally and conjunctivae normal Neck supple, no JVD, thyroid normal and no carotid bruits General: trachea midline Resp normal respiratory effort, no retractions, no use of accessory muscles and clear to auscultation bilaterally Auscultation: Negative for rales, rhonchi or wheezes Cardio regular rate, regular rhythm, S1 normal heart sound, S2 normal heart sound, no murmurs, no rub and no gallops GI normal to inspection, nondistended, normoactive bowel sounds, soft to palpation, non-tender and non-distended Extremity no clubbing, cyanosis or edema Skin no rashes or lesions noted General Skin Exam: no breakdown Neuro oriented x3, CN's II-XII intact bilaterally, no focal motor deficits and no sensory deficits noted Sensorium / Orientation: awake and alert Speech: speech normal Psych affect normal Assessment & Plan Assessment/Plan (1) Diabetes mellitus type 2 with ketoacidosis, uncontrolled: PLAN: Plan 1. DKA with uncontrolled type 2 diabetes-patient's sugars are trending downward, I will try to get the patient controlled on basal insulin alone #2 essential hypertension-patient will remain on his current medications #3 hyperlipidemia-patient is on pravastatin Total clinical time spent by myself addressing the patient's medical issues, reviewing all of his data, and collaborating with patient's care team: 35 minutes Charges/Coding Visit Charges Inpatient E&M: 41660 Subs Hosp L2
[2024-12-11] MEDS: Insulin Glargine-YFGN 100 UNIT/ML Pen 20 UNIT SC (20:34)
[2024-12-12 05:22] VITALS: BP 113/78; PULSE 63; RESP 12; TEMP 36.6; O2SAT 95
[2024-12-12 09:43] VITALS: BP 113/68; PULSE 60; RESP 16; TEMP 36.2; O2SAT 95
[2024-12-12] MEDS: Insulin Glargine-YFGN 100 UNIT/ML Pen 20 UNIT SC (09:45)
[2024-12-12] MEDS: Insulin Glargine-YFGN 100 UNIT/ML Pen 25 UNIT SC (10:15)
[2024-12-12] MEDS: Insulin Glargine-YFGN 100 UNIT/ML Pen 10 UNIT SC (11:18)
[2024-12-12 15:02] VITALS: BP 129/81; PULSE 58; RESP 18; TEMP 36.3; O2SAT 97
[2024-12-12 21:26] VITALS: BP 131/92; PULSE 64; RESP 16; TEMP 36.8; O2SAT 94
[2024-12-13 03:30] VITALS: BP 122/82; PULSE 60; RESP 16; TEMP 36.7; O2SAT 98
--- NOTE | 2024-12-13 07:51 | PCM.PN.HOSP ---
Reason for Visit Reason for Visit: Diagnoses Type 2 diabetes mellitus with ketoacidosis without coma (12/10/24) Subjective Subjective The date of this progress note should read: 12/12/2024-I talked to the patient today, his blood sugars are still not under control, I went over his use of metformin as an outpatient-he maintains that he did not have diarrhea secondary to the metformin and I told him I would advise him to go back on it as well as using his insulin. Patient would feel more comfortable going home tomorrow because he is not quite up to speed on giving himself injections. Objective Data Objective Data Vital Signs: Vital Signs Temp Pulse Resp BP Pulse Ox O2 Del Method 98.1 F 60 16 122/82 H 98 Room Air 12/13/24 03:30 12/13/24 03:30 12/13/24 03:30 12/13/24 03:30 12/13/24 03:30 12/13/24 03:30 Oxygen Delivery Method Room Air Weight: 76.5 kg Body Mass Index (BMI) 24.9 Intake & Output: Intake and Output for Last 24 Hours 12/11/24 12/12/24 12/13/24 23:59 23:59 23:59 Intake Total 1010 / 1325 1115 / 1115 Output Total 200 / 200 Balance 810 / 1125 1115 / 1115 Lab / Micro Data 12/11/24 06:48 12/11/24 06:48 Labs: Laboratory Results - last 24 hr 12/12/24 11:17: POC Glucose 403 H 12/12/24 16:41: POC Glucose 221 H 12/12/24 21:24: POC Glucose 301 H 12/13/24 06:35: POC Glucose 228 H Physical Exam Narrative alert, oriented x3 and no apparent distress General Appearance: cooperative, well kempt and well developed Orientation / Consciousness: awake, oriented to person, oriented to place and oriented to time HEENT normocephalic, head/scalp atraumatic and moist oral mucous membranes Eyes PERRL, EOMs intact bilaterally and conjunctivae normal Neck supple, no JVD, thyroid normal and no carotid bruits General: trachea midline Resp normal respiratory effort, no retractions, no use of accessory muscles and clear to auscultation bilaterally Auscultation: Negative for rales, rhonchi or wheezes Cardio regular rate, regular rhythm, S1 normal heart sound, S2 normal heart sound, no murmurs, no rub and no gallops GI normal to inspection, nondistended, normoactive bowel sounds, soft to palpation, non-tender and non-distended Extremity no clubbing, cyanosis or edema Skin no rashes or lesions noted General Skin Exam: no breakdown Neuro oriented x3, CN's II-XII intact bilaterally, no focal motor deficits and no sensory deficits noted Sensorium / Orientation: awake and alert Speech: speech normal Psych affect normal Assessment & Plan Assessment/Plan (1) Diabetes mellitus type 2 with ketoacidosis, uncontrolled: PLAN: Plan 1. DKA with uncontrolled type 2 diabetes-patient's sugars are trending downward, I will try to get the patient controlled on basal insulin with the addition of metformin #2 essential hypertension-patient will remain on his current medications #3 hyperlipidemia-patient is on pravastatin Total clinical time spent by myself addressing the patient's medical issues, reviewing all of his data, and collaborating with patient's care team: 35 minutes
[2024-12-13 08:15] VITALS: BP 146/97; PULSE 59; RESP 16; TEMP 36.4; O2SAT 94
--- NOTE | 2024-12-13 10:13 | PCM.DC ---
Discharge Instructions DC O2, CPAP, BIPAP needs Home O2 Discharge instructions: No Dressing / Incision Discharge Activity: Return to Normal Activity Weight Bearing Status: Full weight bearing Follow Up Care Test Results: Test results from this visit will be discussed in further detail at your follow-up appointment, if applicable. Discharge Plan Admission Admit Date/Time: 12/10/24 22:38 Primary Reason for Your Visit: Uncontrolled type 2 diabetes Attending Provider: Danny Naidu Primary Care Provider: Estefany Swartz NP Consulting Providers: Ruy Bird Discharge Orders/Prescriptions Prescriptions: New insulin glargine-yfgn 100 unit/mL (3 mL) Insulin Pen 45 unit subcut DAILY Qty: 15 0RF metformin 500 mg Tablet 500 mg PO 2XD Qty: 60 0RF (DME) pen needle, diabetic 31 gauge x 1/3 needle See Rx Instructions .Route Qty: 100 0RF Rx Instructions: As directed Continued lisinopril 40 MG tablet 40 mg PO DAILY Patient Comments: blood pressure pravastatin 80 MG tablet 40 mg PO DAILY Patient Comments: TAKES 80 MG WED,SAT oxybutynin chloride 5 MG tablet 10 mg PO DAILY ibuprofen 400 MG tablet 400 mg PO 4X/DAY PRN PRN (Reason: Pain Score 4-10/10) Qty: 14 0RF Super Beta Prostate 1 cap PO PRN aspirin 81 mg capsule 81 mg PO DAILY Discontinued amlodipine 5 MG tablet 5 mg PO DAILY metformin 500 MG tablet 500 mg PO DAILY Referrals / Follow Up: Mavis Dockery MD [Med Staff - Disaster Or Damage Control Specialist] - Estefany Swartz NP, FOUNDATION DRILL OPERATOR-C [Primary Care Provider] - Within 2 Weeks Disposition Disposition (needs filled in before D/C Order can be placed): Home, Self Care
--- NOTE | 2024-12-13 10:18 | DS.PCM_ITS ---
Providers Date of Admission: 12/10/24 Date of Discharge: 12/13/24 Primary Care Physician: Estefany Swartz, JUAN ALBERTO Reason For Visit: T2DM W/ SEVERE HYPERGLYCEMIA Diagnosis Discharge Diagnosis (1) Diabetes mellitus type 2 with ketoacidosis, uncontrolled: Status: Acute Code(s): E11.10 - Type 2 diabetes mellitus with ketoacidosis without coma Plan 1. DKA with uncontrolled type 2 diabetes-patient's sugars are trending downward, I will try to get the patient controlled on basal insulin with the addition of metformin #2 essential hypertension-patient will remain on his current medications #3 hyperlipidemia-patient is on pravastatin Total clinical time spent by myself addressing the patient's medical issues, reviewing all of his data, and collaborating with patient's care team: 35 minutes Medications at Discharge Home Medications lisinopril 40 mg tablet 40 mg PO DAILY BP 06/17/14 pravastatin 80 mg tablet 40 mg PO DAILY CHOLESTEROL 12/24/17 ibuprofen 400 mg tablet 400 mg PO 4X/DAY PRN PRN Pain Score 4-10 #14 tabs 11/14/19 oxybutynin chloride 5 mg tablet 10 mg PO DAILY bladder 11/14/19 Super Beta Prostate 1 cap PO PRN urinary 05/20/20 aspirin 81 mg capsule 81 mg PO DAILY cardiac 12/10/24 insulin glargine-yfgn 100 unit/mL (3 mL) subcutaneous pen 45 unit (0.45 mL) subcut DAILY #15 mL 12/13/24 metformin 500 mg tablet 500 mg PO 2XD #60 tabs 12/13/24 pen needle, diabetic 31 gauge x 1/3 #100 ea 12/13/24 Hospital Course Operations None Procedures None Summary of Care Provided Minutes Spent on Discharge: 31 Hospital Course: This 79 white male was seen in the emergency room at [facility] with a chief complaint of elevated blood sugar, increased thirst, and polyuria. He was seen at [facility] earlier in the day, he was given insulin and he was discharged to home. Patient is not on any diabetic medication-he used to be on metformin but this was stopped by his physician approximately 2 months ago. Labs in the emergency room were abnormal for glucose of 634, patient's creatinine was elevated at 1.34 and sodium was 129. Patient's anion gap was elevated at 17, patient had hemoglobin A1c drawn that was abnormal at 14.7. Patient was admitted to PCU and placed on sliding scale insulin and given IV fluids, patient's blood sugar improved, I talked with the patient's PCP and she stated that the patient's glucose had been under control and she had not restarted his metformin. It was stopped due to concerns of diarrhea-patient states that he does not feel that the diarrhea was caused by the metformin. On 12/13/2024, patient was seen and examined: On examination he appeared in good health and spirits. Vital signs as documented. Skin warm and dry and without overt rashes. Neck without JVD, neck was supple, trachea midline, thyroid was normal. Lungs clear bilaterally, normal air movement was noted. Heart exam notable for regular rhythm, normal sounds and absence of murmurs, rubs or gallops. Abdomen unremarkable and without evidence of organomegaly, masses, or abdominal aortic enlargement. Bowel sounds are present, abdomen is not distended. Extremities nonedematous, no cyanosis was noted, no clubbing was noted. Neuro: Cranial nerves II through XII are grossly intact, no focal motor deficits were noted, sensation to light touch and pinprick intact, motor exam 5/5 throughout. Psych: Patient is alert and oriented x3, he does not appear anxious or depressed, he does not appear agitated. Patient was discharged home in stable condition on 12/13/2024. Weight / BMI Weight Weight: 76.5 kg Body Mass Index (BMI) 24.9 ABG / Lab / Microbiology Data 12/11/24 06:48 12/11/24 06:48 Laboratory: Laboratory Results - last 24 hr 12/12/24 11:17: POC Glucose 403 H 12/12/24 16:41: POC Glucose 221 H 12/12/24 21:24: POC Glucose 301 H 12/13/24 06:35: POC Glucose 228 H D/C Instructions Weight Bearing Status: Full weight bearing DC O2, CPAP, BIPAP Needs Home O2 Discharge instructions: No Meaningful Use Info Meaningful Use Meaningful Use Diagnoses (Choose all that apply): None applicable Discharge Plan Admission Admit Date/Time: 12/10/24 22:38 Primary Reason for Your Visit: Uncontrolled type 2 diabetes Attending Provider: Danny Naidu Primary Care Provider: Estefany Swartz NP Consulting Providers: Ruy Bird Discharge Orders/Prescriptions Prescriptions: New insulin glargine-yfgn 100 unit/mL (3 mL) Insulin Pen 45 unit subcut DAILY Qty: 15 0RF metformin 500 mg Tablet 500 mg PO 2XD Qty: 60 0RF (DME) pen needle, diabetic 31 gauge x 1/3 needle See Rx Instructions .Route Qty: 100 0RF Rx Instructions: As directed Continued lisinopril 40 MG tablet 40 mg PO DAILY Patient Comments: blood pressure pravastatin 80 MG tablet 40 mg PO DAILY Patient Comments: TAKES 80 MG SUN,SUN oxybutynin chloride 5 MG tablet 10 mg PO DAILY ibuprofen 400 MG tablet 400 mg PO 4X/DAY PRN PRN (Reason: Pain Score 4-10/10) Qty: 14 0RF Super Beta Prostate 1 cap PO PRN aspirin 81 mg capsule 81 mg PO DAILY Discontinued amlodipine 5 MG tablet 5 mg PO DAILY metformin 500 MG tablet 500 mg PO DAILY Referrals / Follow Up: Mavis Dockery MD [Med Staff - Director Of Community Life] - Estefany Swartz NP, INTRAOPERATIVE NEURO TECH-C [Primary Care Provider] - Within 2 Weeks Disposition Disposition (needs filled in before D/C Order can be placed): Home, Self Care Charges/Coding Visit Charges Inpatient E&M: 76702 Disch Hosp >30min
[2024-12-13] MEDS: Insulin Glargine-YFGN 100 UNIT/ML Pen 45 UNIT SC (10:49)
== END 2024-12-13 11:45 | disposition home or self-care (01) | DRG 639 ==
LOC: ED 22:49 → PCU 23:28
PROVIDERS: Admitting Provider Hospitalist; Emergency Provider Emergency Medicine; PCP Nurse Practitioner Family; Referring Provider Emergency Medicine; Visit Provider Internal Medicine
DX: E11.10 Type 2 diabetes mellitus with ketoacidosis without coma (principal); E11.65 Type 2 diabetes mellitus with hyperglycemia; I10 Essential (primary) hypertension; E78.5 Hyperlipidemia, unspecified; I25.10 Atherosclerotic heart disease of native coronary artery without angina pectoris; R79.89 Other specified abnormal findings of blood chemistry; Z79.899 Other long term (current) drug therapy; N32.81 Overactive bladder
CPT/HCPCS: 36415; 80048; 81001; 82010; 82962; 83036; 85025; 85027; 93005; 94668; 97802; 99252; 99285; A4216; G0463